=== PATIENT | female | born 1955 | race Caucasian/White ===

== ENCOUNTER 2019-11-14 09:16 | Outpatient (CLI) | payer OTHER, SELFPAY ==
--- NOTE | ~2019-11-14 | CT_ITS ---
EXAMINATION:CT lung screening DATE: 11/14/2019 09:36 INDICATION: Personal history of tobacco dependence. Current smoker with 30 pack year history. TECHNIQUE: Computed tomography (CT) of the chest was performed without intravenous contrast. Automate d exposure control and iterative reconstruction technique were employed. The dose-length product (DLP ) was 73.60 mGy-cm. COMPARISON: Chest CT 04/01/2018 FINDINGS: There is mild emphysema. There is mild scarring at the lung apices. Calcified bilateral dominique g nodules are consistent with old granulomatous disease. No pleural effusion. The heart size is estelle l. There are coronary artery calcifications. No pericardial effusion. There are bilateral posterior d iaphragmatic hernias containing fat. There is moderate cervical spondylosis. IMPRESSION: 1. Lung-RADS category 2: Benign appearance or behavior. Continue annual screening with noncontrast lo w-dose chest CT in 12 months. Reviewed, dictated and finalized at location A. ROL OPERATOR FLOW COAT IMPRESSION: 1. Lung-RADS category 2: Benign appearance or behavior. Continue annual screeni ng with noncontrast low-dose chest CT in 12 months.
== END 2019-11-14 09:17 | disposition home or self-care (01) ==
PROVIDERS: PCP Family Medicine; Visit Provider Internal Medicine Critical Care Medicine
DX: Z12.2 Encounter for screening for malignant neoplasm of respiratory organs (principal); Z87.891 Personal history of nicotine dependence
CPT/HCPCS: G0297

== ENCOUNTER 2020-05-03 11:53 | Outpatient (CLI) | payer OTHER, SELFPAY ==
[2020-05-03 12:24] LABS: Basophils Percent Auto 0.4 % (0.2-1.2); Eosinophils Absolute Auto 0.2 K/mm3 (0-0.3); Eosinophils Percent Auto 2.5 % (0-4.4); Hematocrit 40.8 % (37.0-47.0); Hemoglobin 13.7 g/dL (12.0-15.0); Immature Granulocyte Absolute 0.01 K/mm3 (0.00-0.031); Immature Granulocyte Percent A 0.1 % (0-0.5); Lymphocytes Absolute Auto 1.64 K/mm3 (0.9-3.2); Lymphocytes Percent Auto 23.7 % (18.3-44.2); Mean Corpuscular HGB Conc 33.6 g/dl (32-36); Mean Corpuscular Hemoglobin 30.9 pg (26-34); Mean Corpuscular Volume 91.9 fl (80-100); Mean Platelet Volume 9.1 fl (7.4-10.4); Monocytes Absolute Auto 0.7 K/mm3 (0.1-0.6); Monocytes Percent Auto 10.7 % (2.6-8.5); Neutrophils Absolute Auto 4.3 K/mm3 (1.3-6.7); Neutrophils Percent Auto 62.6 % (45.5-73.1); Platelet Count Result 330 k/mm3 (150-375); Red Blood Count 4.44 M/mm3 (4.2-5.4); Red Cell Distribution Width 13.3 % (11.5-14.5); White Blood Count 6.9 K/mm3 (4.5-10.0)
[2020-05-03 12:34] LABS: Hemoglobin A1C 5.5 % (<5.7)
[2020-05-03 12:44] LABS: Alanine Aminotransferase 19 U/L (4-35); Albumin Level 4.4 g/dL (3.5-5.1); Alkaline Phosphatase 50 U/L (38-126); Anion Gap 9.8 mmol/L (7-16); Aspartate Amino Transferase 28 U/L (14-36); Bilirubin,Total 0.4 mg/dL (0.2-1.3); Blood Urea Nitrogen 14 mg/dL (7-17); Calcium 9.1 mg/dL (8.4-10.2); Carbon Dioxide 27 mmol/L (22-30); Chloride 104 mmol/L (98-107); Cholesterol 254 mg/dL (0-200); Estimated Glomerular Filt Rate > 60; Glucose 106 mg/dL (65-105); HDL Direct 88 mg/dL; Potassium 3.8 mmol/L (3.4-5.0); Sodium 137 mmol/L (137-145); Triglycerides 102 mg/dL (<150)
[2020-05-03 12:55] LABS: LDL Cholesterol Direct 133 mg/dL
[2020-05-03 13:30] LABS: Free T4 Free Thyroxine 1.17 ng/mL (0.78-2.19)
== END 2020-05-03 11:54 | disposition home or self-care (01) ==
PROVIDERS: PCP Family Medicine; Visit Provider Family Medicine
DX: Z00.00 Encounter for general adult medical examination without abnormal findings (principal); Z79.899 Other long term (current) drug therapy
CPT/HCPCS: 36415; 80053; 80061; 83036; 84439; 84443; 85025

== ENCOUNTER 2020-06-06 10:20 | Outpatient (CLI) | payer OTHER, SELFPAY ==
--- NOTE | ~2020-06-06 | MM_ITS ---
EXAMINATION: MM screening deangelo BI w stephen HISTORY: Screening TECHNIQUE: Craniocaudal and mediolateral oblique 3-D tomosynthesis images were obtained and synthetic 2-D images were generated. CAD analysis was submitted and interpreted. COMPARISON: Comparison to multiple prior studies sequentially, with oldest reviewed study dated 12/2011. BREAST PARENCHYMAL COMPOSITION: There are scattered areas of fibroglandular density. FINDINGS: There is no evidence of suspicious mass, calcification, or architectural distortion to sugg est malignancy in either breast. There has been no suspicious interval change. IMPRESSION: 1. No mammographic evidence of malignancy. 2. Recommend routine screening mammography in one year. BI-RADS Category 1: Negative Reviewed, dictated and finalized at location A.
== END 2020-06-06 10:21 | disposition home or self-care (01) ==
PROVIDERS: PCP Family Medicine; Visit Provider Family Medicine
DX: Z12.31 Encounter for screening mammogram for malignant neoplasm of breast (principal)
CPT/HCPCS: 77063; 77067

== ENCOUNTER 2021-06-20 15:10 | Outpatient (CLI) | payer OTHER, SELFPAY ==
--- NOTE | ~2021-06-20 | MM_ITS ---
EXAMINATION: MM screening deangelo BI w stephen HISTORY: Screening TECHNIQUE: Craniocaudal and mediolateral oblique 3-D tomosynthesis images were obtained and synthetic 2-D images were generated. CAD analysis was submitted and interpreted. COMPARISON: Comparison to multiple prior studies sequentially, with oldest reviewed study dated 06/23. BREAST PARENCHYMAL COMPOSITION: There are scattered areas of fibroglandular density. FINDINGS: There is no evidence of suspicious mass, calcification, or architectural distortion to sugg est malignancy in either breast. There has been no suspicious interval change. IMPRESSION: 1. No mammographic evidence of malignancy. 2. Recommend routine screening mammography in one year. BI-RADS Category 1: Negative Reviewed, dictated and finalized at location A.
== END 2021-06-20 15:11 | disposition home or self-care (01) ==
LOC: ANHIMG 15:13
PROVIDERS: PCP Family Medicine; Visit Provider Family Medicine
DX: Z12.31 Encounter for screening mammogram for malignant neoplasm of breast (principal)
CPT/HCPCS: 77063; 77067

== ENCOUNTER → 2021-12-05 12:16 | Outpatient (CLI) | payer OTHER, SELFPAY ==
--- NOTE | ~2021-12-05 | CT_ITS ---
EXAMINATION: CT lung screening DATE: 12/05/2021 12:48 INDICATION: Personal history of tobacco dependence TECHNIQUE: Computed tomography (CT) of the chest was performed without intravenous contrast. The dose -length product was 69.85 mGy-cm. Automated exposure control and iterative reconstruction technique were employed. COMPARISON: CT dated 11/14/2019 FINDINGS: No significant pleural or pericardial effusion. Mild cardiomegaly. No thoracic lymphadenopa thy. Small hiatal hernia. There is a new 7 mm right upper lobe nodule, image 33. There is emphysema. There is a subsolid 7 mm nodule in the superior segment left lower lobe. There is apical pleural thic kening/scarring no pneumothorax. No pneumothorax. No focal airspace consolidation. No acute osseous a bnormality. IMPRESSION: 1. Lung-RADS category 3: Probably benign. Further evaluation is recommended with noncontrast low-dose chest CT in 6 months. Reviewed, dictated and finalized at location A. WORKER IMPRESSION: 1. Lung-RADS category 3: Probably benign. Further evaluation is recommended wit h noncontrast low-dose chest CT in 6 months.
== END ==
PROVIDERS: PCP Family Medicine; Visit Provider Physician Assistant
DX: Z87.891 Personal history of nicotine dependence (principal); R91.8 Other nonspecific abnormal finding of lung field
CPT/HCPCS: 71271

== ENCOUNTER → 2022-03-20 09:42 | Outpatient (CLI) | payer OTHER, SELFPAY ==
--- NOTE | ~2022-03-20 | CT_ITS ---
EXAMINATION: CT diagnostic chest wo con DATE: 03/20/2022 09:59 INDICATION: Other nonspecific abnormal finding of lung field TECHNIQUE: Computed tomography (CT) of the chest was performed without intravenous contrast. Addition al 3D reconstructions utilizing coronal maximum intensity projection (MIP) were performed. Automated exposure control and iterative reconstruction technique were employed. The dose-length product was 60 .05 mGy-cm. COMPARISON: 12/05/21 FINDINGS: Mild emphysema. No interval change in a 7 mm right upper lobe nodule with tiny central cavitation. Sl ight decrease in size of a previously 6 mm currently for-5 mm cavitary nodule in the superior segment of the left lower lobe. Multiple unchanged cysts scattered tiny bilateral calcified pulmonary nodule s consistent with old granulomatous disease. No new or enlarging pulmonary nodules, pneumonia,, pulmo nary edema or pleural effusion. Heart size is normal. Atherosclerotic coronary artery calcific locati on. No pericardial effusion. Small sliding-type hiatal hernia. Thoracic aorta is normal in caliber. N o pathologically enlarged thoracic lymphadenopathy. Mild thoracic spondylosis. IMPRESSION: 1. No change in a 7 mm centrally cavitary nodules in the right upper lobe and slight decrease in size of a now 4-5 mm centrally cavitary nodule in the superior segment of the left lower lobe. Would dinora mmend additional 6-12 month follow-up noncontrast chest CT. 2. Small sliding-type hiatal hernia. Reviewed, dictated and finalized at location A. IMPRESSION: 1. No change in a 7 mm centrally cavitary nodules in the right upper lobe and s light decrease in size of a now 4-5 mm centrally cavitary nodule in the superio r segment of the left lower lobe. Would recommend additional 6-12 month follow- up noncontrast chest CT. 2. Small sliding-type hiatal hernia.
== END ==
PROVIDERS: PCP Family Medicine; Visit Provider Physician Assistant
DX: R91.8 Other nonspecific abnormal finding of lung field (principal); Z72.0 Tobacco use; K44.9 Diaphragmatic hernia without obstruction or gangrene
CPT/HCPCS: 71250

== ENCOUNTER → 2022-09-25 09:58 | Outpatient (CLI) | payer OTHER, SELFPAY ==
--- NOTE | ~2022-09-25 | CT_ITS ---
CT Scan of the Chest without Contrast: Clinical Indication: Pulmonary nodule Technique: Contiguous sections were acquired throughout the chest without intravenous contrast. Dose reduction technique was used on this scan by utilizing automated exposure control and iterative recon struction technique. The dose-length product (DLP) was 65.00 mGy-cm. COMPARISON: 03/20/2022 and 11/14/2019 Findings: There is no evidence of any significant mediastinal, hilar or axillary lymphadenopathy. Coronary brandon ry calcifications are present. No aortic aneurysm. There is no evidence of pleural or pericardial effusion. There is a new 6.5 mm nodule at the right lung apex (series 4 image 24). There is a new 9 x 7 mm righ t upper lobe pulmonary nodule with possible tiny central cavitation (axial images 45-47). There is a new 10 x 6 mm left upper lobe pulmonary nodule (axial image 37). Stable 6 mm right upper lobe nodule tiny focus of central cavitation (axial image 32). Stable calcifi ed granuloma in the left upper lobe (axial image 50). Previously noted small cavitary nodule in the s uperior segment left upper lobe now has an appearance of an evolved calcified granuloma (axial image 52). Images through the upper abdomen reveal no abnormalities. Impression: 3 new pulmonary nodules measuring up to 9 mm and 6.5 mm in size in the right upper lobe, and 10 mm in the left upper lobe, as detailed above. One of the previously noted nodules in the superior segment left upper lobe has evolved into a calcified granuloma. This suggests an infectious/inflammatory etio logy to these nodules. Follow-up exam in 3 months recommended to reassess the new pulmonary nodules. Reviewed, dictated and finalized at location . ETIC SURGEON Impression: 3 new pulmonary nodules measuring up to 9 mm and 6.5 mm in size in the right up per lobe, and 10 mm in the left upper lobe, as detailed above. One of the previ ously noted nodules in the superior segment left upper lobe has evolved into a calcified granuloma. This suggests an infectious/inflammatory etiology to these nodules. Follow-up exam in 3 months recommended to reassess the new pulmonary nodules.
== END ==
PROVIDERS: PCP Physician Assistant; Visit Provider Nurse Practitioner Family
DX: R91.8 Other nonspecific abnormal finding of lung field (principal)
CPT/HCPCS: 71250

== ENCOUNTER → 2022-12-25 09:23 | Outpatient (CLI) | payer OTHER, SELFPAY ==
--- NOTE | ~2022-12-25 | CT_ITS ---
CT Scan of the Chest without Contrast: Clinical Indication: Pulmonary nodules Technique: Contiguous sections were acquired throughout the chest without intravenous contrast. Dose reduction technique was used on this scan by utilizing automated exposure control and iterative recon struction technique. The dose-length product (DLP) was 55.60 mGy-cm. COMPARISON: 09/25/2022 and and 03/20/2022 12/05/2021 and 25/06/2020 Findings: There is no evidence of any significant mediastinal, hilar or axillary lymphadenopathy. Coronary brandon ry calcifications are present. There is no evidence of pleural or pericardial effusion. 7 mm right upper lobe pulmonary nodule stable since 09/25/2022, new since 11/14/2019 (axial image 31). Additional 8 mm right upper lobe nodules minimally decreased (axial image 44). 5 mm right apical pulm onary nodule is decreased since 09/25/2022 (axial image 22). 8 mm left upper lobe pulmonary nodule is also unchanged since 09/25/2022, but new since 11/25/2025 axial image 33). Stable calcified left uppe r lobe granuloma since 11/14/2019. Images through the upper abdomen reveal no abnormalities. Impression: Bilateral upper lobe pulmonary nodules are stable to minimally decreased from most recent prior exam. Additional follow-up exam in 6 months advised. Reviewed, dictated and finalized at location M. Impression: Bilateral upper lobe pulmonary nodules are stable to minimally decreased from m ost recent prior exam. Additional follow-up exam in 6 months advised.
== END ==
PROVIDERS: PCP Nurse Practitioner Family; Visit Provider Nurse Practitioner Family
DX: R91.8 Other nonspecific abnormal finding of lung field (principal)
CPT/HCPCS: 71250

== ENCOUNTER → 2023-06-27 10:02 | Outpatient (CLI) | payer MEDICARE, SELFPAY ==
--- NOTE | ~2023-06-27 | CT_ITS ---
EXAMINATION: CT diagnostic chest wo con DATE: 06/27/2023 10:26 INDICATION: Pulmonary nodules TECHNIQUE: Computed tomography (CT) of the chest was performed without intravenous contrast. The dose -length product (DLP) was 64.87 mGy-cm. Automated exposure control and iterative reconstruction techn ique were employed. COMPARISON: 12/25/2022, 09/25/2022, 12/05/2021 FINDINGS: There is mild emphysema. There multiple new pulmonary nodules. There is a 13 mm nodule cent ral cavitation in the left upper lobe (image 29). There is a 10 mm nodule of the left upper lobe on i mage 37. An adjacent 6 mm nodule of the left upper lobe is stable. There is a stable 6 mm nodule of t he right upper lobe on image 33. A 4 mm right upper lobe nodule on image 36 is new. A 6 mm nodule of the right lower lobe is stable. No pleural effusion or pneumothorax. There is mild emphysema. No path ologically enlarged thoracic lymph nodes are identified. The heart size is normal. Calcified coronary artery atherosclerosis is noted. There is a small sliding hiatal hernia. IMPRESSION: 1. Multiple new pulmonary nodules as detailed above which may be infectious given their size and shor t interval since the comparison examination. However, follow-up low-dose CT in three months is recomm ended. Reviewed, dictated and finalized at location B. IMPRESSION: 1. Multiple new pulmonary nodules as detailed above which may be infectious giv en their size and short interval since the comparison examination. However, fol low-up low-dose CT in three months is recommended.
== END ==
PROVIDERS: PCP Nurse Practitioner Family; Visit Provider Nurse Practitioner Family
DX: R91.8 Other nonspecific abnormal finding of lung field (principal)
CPT/HCPCS: 71250

== ENCOUNTER 2023-07-04 15:51 | Outpatient (CLI) | payer MEDICARE, SELFPAY ==
[2023-07-04 16:47] LABS: Basophils Percent Auto 0.5 % (0.2-1.2); Eosinophils Absolute Auto 0.2 K/mm3 (0-0.3); Eosinophils Percent Auto 2.8 % (0-4.4); Hematocrit 40.1 % (37.0-47.0); Hemoglobin 12.9 g/dL (12.0-15.0); Immature Granulocyte Absolute 0.02 K/mm3 (0.00-0.031); Immature Granulocyte Percent A 0.2 % (0-0.5); Lymphocytes Absolute Auto 2.07 K/mm3 (0.9-3.2); Lymphocytes Percent Auto 25.1 % (18.3-44.2); Mean Corpuscular HGB Conc 32.2 g/dl (32-36); Mean Corpuscular Hemoglobin 30.4 pg (26-34); Mean Corpuscular Volume 94.6 fl (80-100); Mean Platelet Volume 9.4 fl (7.4-10.4); Monocytes Absolute Auto 0.7 K/mm3 (0.1-0.6); Neutrophils Absolute Auto 5.2 K/mm3 (1.3-6.7); Neutrophils Percent Auto 62.4 % (45.5-73.1); Platelet Count Result 409 k/mm3 (150-375); Red Blood Count 4.24 M/mm3 (4.2-5.4); Red Cell Distribution Width 13.9 % (11.5-14.5); White Blood Count 8.3 K/mm3 (4.5-10.0)
== END 2023-07-04 15:52 | disposition home or self-care (01) ==
PROVIDERS: PCP Nurse Practitioner Family; Visit Provider Nurse Practitioner Family
DX: R05.8 Other specified cough (principal); R91.8 Other nonspecific abnormal finding of lung field
CPT/HCPCS: 36415; 85025; 86606

== ENCOUNTER 2023-07-07 12:21 | Outpatient (CLI) | payer MEDICARE, SELFPAY | END 2023-07-07 12:22 | disposition home or self-care (01) | PROVIDERS: PCP Nurse Practitioner Family; Visit Provider Nurse Practitioner Family | DX: R05.8 Other specified cough (principal) | CPT/HCPCS: 87070; 87205 ==

== ENCOUNTER 2023-07-17 10:23 | Outpatient (CLI) | payer MEDICARE, SELFPAY | END 2023-07-17 10:24 | disposition home or self-care (01) | PROVIDERS: PCP Nurse Practitioner Family; Visit Provider Nurse Practitioner Family | DX: R05.8 Other specified cough (principal) | CPT/HCPCS: 87015; 87070; 87102; 87106; 87107; 87116; 87205; 87206 ==

== ENCOUNTER 2023-07-18 09:08 | Outpatient (CLI) | payer MEDICARE, SELFPAY | END 2023-07-18 09:09 | disposition home or self-care (01) | PROVIDERS: PCP Nurse Practitioner Family; Visit Provider Nurse Practitioner Family | DX: R05.8 Other specified cough (principal) | CPT/HCPCS: 87015; 87070; 87102; 87106; 87107; 87116; 87118; 87205; 87206 ==

== ENCOUNTER 2023-09-03 10:23 | Outpatient (CLI) | payer MEDICARE, SELFPAY ==
--- NOTE | ~2023-09-03 | CT_ITS ---
CT Scan of the Chest without Contrast: Clinical Indication: Nonspecific abnormal finding of lung field, pulmonary nodule Technique: Contiguous sections were acquired throughout the chest without intravenous contrast. Dose reduction technique was used on this scan by utilizing automated exposure control and iterative recon struction technique. The dose-length product (DLP) was 81.46 mGy-cm. COMPARISON: 06/25/2023 Findings: There is no evidence of any significant mediastinal, hilar or axillary lymphadenopathy. The mediastin al soft tissues appear normal. There is no evidence of pleural or pericardial effusion. 1.7 cm left apical pulmonary nodule with possible tiny central cavitation is present, probably minima lly increased in size from prior exam. Additional 1.2 cm left upper lobe pulmonary nodules essentiall y unchanged (axial image 37). Stable additional 4 mm left upper lobe pulmonary nodule (axial image 51 ). Subcentimeter right upper lobe pulmonary nodules are unchanged. Images through the upper abdomen reveal no abnormalities. Impression: Multiple pulmonary nodules, as detailed above, stable in distribution from prior exam. The largest 1. 7 cm lesion at the left apex may be minimally increased from prior exam. Diagnostic considerations ag ain include infectious/inflammatory versus neoplastic lesions. Given persistence of lesions, consider tissue sampling as indicated. Reviewed, dictated and finalized at location M. FISHING VESSEL Impression: Multiple pulmonary nodules, as detailed above, stable in distribution from prio r exam. The largest 1.7 cm lesion at the left apex may be minimally increased f rom prior exam. Diagnostic considerations again include infectious/inflammatory versus neoplastic lesions. Given persistence of lesions, consider tissue sampl ing as indicated.
== END 2023-09-03 10:24 | disposition home or self-care (01) ==
PROVIDERS: PCP Nurse Practitioner Family; Visit Provider Nurse Practitioner Family
DX: R91.8 Other nonspecific abnormal finding of lung field (principal)
CPT/HCPCS: 71250

== ENCOUNTER 2023-09-12 18:33 | Inpatient (IN) | payer MEDICARE, SELFPAY ==
[2023-09-09 09:45] VITALS: BMI 24.9
--- NOTE | 2023-09-09 09:46 | PC.NURSE ---
Pre Radiology instructions Report to the outpatient srinath solomon on date _09/12/23____ at time __0900 for procedure Time: __1100__ YOU MAY BE MONITORED AT HOSPITAL FOR UP TO 4 HOURS AFTER YOUR PROCEDURE. A visitor will be allowed to accompany the patient into the hospital. You and your visitor will be asked to self-screen and do not enter if you have any COVID symptoms. A mask is OPTIONAL within the hospital. Patients are to have no food or drink 8 hours prior to procedure time (0300 AM) Driving will be restricted after the procedure, you must have a person to drive you home. Labs will be drawn in preop area and once reviewed, you will be taken to radiology area for procedure. When the procedure is completed, you will be taken to outpatient where you will be monitored for several hours. You may have one visitor in this area. Other than holding anti-coagulants, patient may take other medication(s) as scheduled. Prior to your appointment date patients are instructed to hold anti-coagulants after discussing with ordering provider to stop. If unable to discontinue anti-coagulants please notify radiologist. ? No aspirin or warfarin (Coumadin) for 7 days prior to the procedure. ? No clopidogrel (Plavix), ticagrelor (Brilinta), prasugrel (Effient) or dabigatran (Pradaxa) for 5 days prior to the procedure. ? No rivaroxaban (Xarelto), apixaban (Eliquis), dipyridamole (Aggrenox or Persantine) or cilostazol (Pletal) for 2 days prior to the procedure. Medications to discontinue per physician: ___N/A Date to take last dose: Please leave all valuables, including medications, at home the day of procedure. The hospital will not accept responsibility for valuables. Wear comfortable, loose fitting clothing.? Follow any additional instructions given to you from ordering provider. Telephone instructions given to ____PT and asked if any additional questions and then verbalized understanding. Patient advised to call scheduling provider office or registration scheduling [phone] if any additional questions.
[2023-09-12] VITALS (20 sets, daily range): BP systolic 124–156; BP diastolic 59–74; PULSE 60–89; RESP 14–20; TEMP 36.4–37.5; O2SAT 93–100; BMI 24.0
--- NOTE | ~2023-09-12 | CT_ITS ---
EXAMINATION: CT chest tube placement w img DATE: 09/12/2023 18:37 INDICATION: Iatrogenic left pneumothorax post percutaneous lung biopsy TECHNIQUE: The procedure including the risks and benefits was discussed with the patient. Risks discu ssed included bleeding and infection. The patient understood the risks and benefits and agreed to pro ceed. The skin at the left infraclavicular region at the site of the prior biopsy was prepped and daria ped in usual sterile fashion. Anesthetic was administered with 1% lidocaine subcutaneously. Utilizin g CT guidance and 18-gauge trochar needle was advanced along the tract of the prior lung biopsy and t he apical portion of the left pneumothorax. The inner stylette was removed and a wire was advanced th rough the needle with position confirmed by CT. Utilizing Seldinger technique the needle was removed over the wire and the tract serially dilated to 8 Fr. An 8.5 Fr catheter was inserted over the wire i nto the apical component of the pneumothorax. The pigtail tip was formed and locked with position con firmed by CT. The catheter was sutured to the skin and antibiotic ointment, Vaseline impregnated gauz e and a sterile dressing were applied. The pneumothorax was manually decompressed with final topogram images demonstrating resolution of the left pneumothorax. There were no immediate complications and the patient was transferred to the floor. The dose-length product was 107.61 mGy-cm. FINDINGS: CT images demonstrate the catheter within the apical component of the left pneumothorax whi ch had resolved post decompression on the final topographic images. There is a residual small amount of pulmonary hemorrhage surrounding the biopsied left apical nodule. The demonstrated significantly i mproved since the time of the biopsy. IMPRESSION: 1. Successful CT-guided left apical chest tube placement with resolution of the left pneumothorax pos t manual decompression. 2. The patient was admitted to the floor to the hospitalist service of Dr. Lily Desir. Reviewed, dictated and finalized at location A. ECTION TEAM LEAD IMPRESSION: 1. Successful CT-guided left apical chest tube placement with resolution of the left pneumothorax post manual decompression. 2. The patient was admitted to the floor to the hospitalist service of Dr. Jaqueline Desir.
--- NOTE | ~2023-09-12 | XR_ITS ---
XR chest 1V portable 09/12/2023 15:04 Indication: Post image guided biopsy. Procedure: AP upright view of the chest Comparison: 09/12/2023 Findings: Increased size of moderate left pneumothorax measuring 6.4 cm from the visceral to the bentley etal pleura at the apex. There is underlying compressive atelectasis of the left upper lung. There ma y be superimposed postbiopsy hemorrhage. Right lung clear. Borderline heart size. No significant effu roberto. Impression: 1: Enlarging moderate left pneumothorax. Reviewed, dictated and finalized at location B. UNLOADER HELPER Impression: 1: Enlarging moderate left pneumothorax.
--- NOTE | ~2023-09-12 | XR_ITS ---
EXAMINATION: XR chest 1V portable INDICATION: Pneumothorax TECHNIQUE: Portable AP chest at 0758 hours COMPARISON: 09/13/2023 FINDINGS: The left-sided chest tube is unchanged in position. No pneumothorax is identified. Minimal airspace opacities throughout the left lung likely reflect atelectasis. There is no pleural effusion. The cardiomediastinal silhouette is normal. IMPRESSION: 1. No pneumothorax identified. Reviewed, dictated and finalized at location F. ASS POWER PLANT MANAGER
--- NOTE | ~2023-09-12 | CT_ITS ---
EXAMINATION: CT biopsy lung w/imaging DATE: 09/12/2023 12:20 INDICATION: Solitary pulmonary nodule TECHNIQUE: The procedure including the risks and benefits was discussed with the patient. Risks discu ssed included infection, approximately 1/20 risk of symptomatic hemorrhage beyond mild hemoptysis, ap proximately 1/3 risk of pneumothorax, and approximately 1/10 risk of pneumothorax severe enough to wa rrant chest tube placement. The patient understood the risks and agreed to proceed. The patient was p laced supine. The skin overlying the infraclavicular anterior left upper chest was prepped and drape d in sterile fashion. Anesthetic was administered with 1% lidocaine subcutaneously. A 19 gauge oute r needle was advanced under CT guidance to the lesion of interest. A 20 gauge core biopsy needle was then used to obtain 3 core biopsy specimens. The needle was removed and the entry site was cleaned an d dressed. There is a moderate amount of pulmonary hemorrhage surrounding the biopsied nodule as well as development of a small left apical pneumothorax. This increased over the initial hour of observat ion with some improvement of the pulmonary hemorrhage. There is no significant change in the pneumoth orax on the 3 hour postbiopsy imaging. The patient at this time was saturating 94% on room air. I dis cussed with the patient the options of either discharged to home with return to the emergency departm ent should symptoms worsen or to proceed with chest tube placement. The patient elected to proceed wi chest tube placement and admission. The dose-length product was 282.14 mGy-cm. FINDINGS: CT images demonstrate the outer needle tip adjacent to a 1.8 cm nodule at the left apex. Th ere is a moderate amount of pulmonary hemorrhage surrounding the nodule in the left upper lobe a smal l apical pneumothorax on the final imaging. IMPRESSION: 1. Successful CT-guided biopsy of a 1.8 cm left apical nodule. 2. Moderate amount of post procedure pulmonary hemorrhage which was clearing on follow-up imaging and small to moderate-sized iatrogenic pneumothorax. The patient elected to proceed with chest tube plac ement which was placed without complication with successful decompression of the pneumothorax and exp ansion of the lung. See separate procedure note for further detail. Reviewed, dictated and finalized at location A. LLURGICAL SPECIALIST IMPRESSION: 1. Successful CT-guided biopsy of a 1.8 cm left apical nodule. 2. Moderate amount of post procedure pulmonary hemorrhage which was clearing on follow-up imaging and small to moderate-sized iatrogenic pneumothorax. The pat ient elected to proceed with chest tube placement which was placed without comp lication with successful decompression of the pneumothorax and expansion of the lung. See separate procedure note for further detail.
--- NOTE | ~2023-09-12 | XR_ITS ---
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 RESULT: Lines, tubes, and devices: Smallbore left apical chest tube, in good position. Lungs and pleura: Streaky perihilar opacities and mild diffuse reticular opacities. Near-complete re solution of the left pneumothorax. Hazy segmental left upper lung opacity may represent atelectasis o r reexpansion edema. Cardiomediastinal silhouette: Stable. Other: No acute osseous or upper abdominal finding. IMPRESSION: Near complete resolution of the left pneumothorax status post chest tube insertion. Vascular congesti on/mild edema. Reviewed, dictated and finalized at location K. EN TRACTOR MECHANIC IMPRESSION: Near complete resolution of the left pneumothorax status post chest tube insert ion. Vascular congestion/mild edema.
--- NOTE | ~2023-09-12 | XR_ITS ---
EXAMINATION: XR chest 2V Exam Date/Time: 09/14/2023 13:50 DOUBLE SPINDLE SHAPER OPERATOR HISTORY: s/p chest tube removal Comparison: 09/14/2023 at 7:58 AM. RESULT: Lines, tubes, and devices: Interval removal of the small bore left apical chest tube. Lungs and pleura: Emphysematous and senescent change. Improving aeration in the left upper lung. No pneumothorax. Cardiomediastinal silhouette: Stable. Other: No acute osseous or upper abdominal finding. IMPRESSION: No acute cardiopulmonary process. Reviewed, dictated and finalized at location K. LE SPINDLE SHAPER OPERATOR
--- NOTE | ~2023-09-12 | XR_ITS ---
EXAMINATION: XR chest 1V DATE: 09/12/2023 12:02 INDICATION: Status post percutaneous left lung biopsy TECHNIQUE: frontal view of the chest was obtained. COMPARISON: Chest radiograph dated 11/25/18 FINDINGS: There is a small left pneumothorax at the upper lung zones. Airspace opacity left upper lobe consiste nt with postbiopsy pulmonary hemorrhage which surrounds the biopsied right upper lobe nodule which is concerning for primary bronchogenic carcinoma. Right lung remains clear. No pulmonary edema, pleural effusion or right-sided pneumothorax. The cardiomediastinal silhouette is normal. IMPRESSION: 1. Pulmonary hemorrhage in the left upper lobe and small left pneumothorax. Reviewed, dictated and finalized at location A. CTOR OF CATEGORY MANAGEMENT
--- NOTE | ~2023-09-12 | XR_ITS ---
EXAMINATION: XR chest 1V portable DATE: 09/12/2023 13:05 INDICATION: Status post left percutaneous lung biopsy. TECHNIQUE: frontal view of the chest was obtained. COMPARISON: Chest radiograph dated 09/12/2023 FINDINGS: Increasing size of a small, approaching moderate sized left pneumothorax. Slight improvement in airsp lobito opacities in the left upper lobe consistent with postbiopsy hemorrhage. This obscures the biopsie d left upper lobe nodule which is concerning for primary bronchogenic carcinoma. Right lung remains c lear. No pulmonary edema, pleural effusion or right-sided pneumothorax. Heart size is normal. Visuali zed bones and soft tissues are unremarkable. IMPRESSION: 1. Interval enlargement in a now small to moderate sized left pneumothorax. 2. Improvement in pulmonary hemorrhage in the right upper lobe surrounding the biopsied nodule which is concerning for primary bronchogenic carcinoma. Reviewed, dictated and finalized at location A. DEMONSTRATION AGENT
[2023-09-12 10:22] LABS: Mean Platelet Volume 8.7 fl (7.4-10.4); Platelet Count Result 390 k/mm3 (150-375)
[2023-09-12 10:37] LABS: INR 0.9; Prothrombin Time 12.1 Seconds (11.1-14.7)
--- NOTE | 2023-09-12 13:31 | SUR.PHASEII ---
1315 - Dr Del Rosario called after cxr done. States pneumothorax is a little larger than one seen on the cxr done immediately after procedure. Orders continue to observe pt, continue on 1L/O2 per nasal cannula. will make determination after the next xray done around 1500. Pt remains lying on stretcher, sleeping at intervals. Less coughing than previously.
--- NOTE | 2023-09-12 17:03 | SUR.PHASEII ---
DR. HUNTER HERE TO DISCUSS OPTIONS WITH PATIENT. A CHEST TUBE WILL BE PLACED IN CT PER DR. HUNTER. PATIENT WILL BE ADMITTED. PATIENT UNDERSTANDS PLAN.
--- NOTE | 2023-09-12 17:04 | SUR.PHASEII ---
1648 DR. HUNTER INSTRUCTED TO WEAN OFF TO ROOM AIR.
--- NOTE | 2023-09-12 17:16 | SUR.PHASEII ---
1785 RESIDENCE SUPERVISOR NOTIFIED RE: POSSIBLE ADMISSION.
--- NOTE | 2023-09-12 17:16 | SUR.PHASEII ---
1700 FERRYBOAT TICKET TAKER NOTIFIED OF ADMISSION.
[2023-09-12] MEDS: MORPHINE SULFATE (*CRX) 2 MG/ML INJ 1 MG IV PUSH (17:30)
--- NOTE | 2023-09-12 17:52 | SUR.PHASEII ---
REPORT GIVEN TO AJ BRENNER RN. MESSAGE RELAYED TO HER FROM ADMITTING TO CALL ADMITTING WHEN PATIENT ARRIVES. PATIENT WILL BE A DIRECT ADMIT.
--- NOTE | 2023-09-12 18:50 | ADMGEN ---
This patient, Kirstin Davis, was admitted to 3 [facility] Surg Room 320-01. Patient/family oriented to hospital policies and general routines including ID bracelet, bed and alarms, visiting hours, pain management, procedures, bathroom and other care routines, personal items, smoking policy, room service/diet, and visiting hours. Information on how to activate the Rapid Response Team has been discussed. Patient/Family are encouraged to report perceived risks to care and to ask questions if they do not understand what they are told or what they should do. Received pt from CT s/p chest tube placement; pt hooked to chest tube system with suction. Clamps, vaseline gauze, 4x4s, tape all at pt bedside
[2023-09-12] MEDS: LACTATED RINGERS 1,000 ML 100 ML IV CONT (19:56)
[2023-09-12] MEDS: ACETAMINOPHEN 325 MG TABLET 650 MG PO (19:56)
--- NOTE | 2023-09-12 20:21 | PM.IMHP ---
H&P: HPI History of Present Illness Date/Time: 09/12/23 20:21 Chief Complaint: Acute pneumothorax Narrative: This is a 67-year-old female with past medical history significant for COPD/emphysema, tobacco dependence, lung nodule, recurrent pneumonia. Patient was admitted after developing postprocedural acute pneumothorax of the left side after lung biopsy. At the time of my visit patient was comfortable denied any pain. XR chest 1V portable 09/12/2023 15:04 Indication: Post image guided biopsy. Procedure: AP upright view of the chest Comparison: 09/12/2023 Findings: Increased size of moderate left pneumothorax measuring 6.4 cm from the visceral to the parietal pleura at the apex. There is underlying compressive atelectasis of the left upper lung. There may be superimposed postbiopsy hemorrhage. Right lung clear. Borderline heart size. No significant effusion. Impression: 1: Enlarging moderate left pneumothorax. EXAMINATION: CT chest tube placement w img DATE: 09/12/2023 18:37 INDICATION: Iatrogenic left pneumothorax post percutaneous lung biopsy TECHNIQUE: The procedure including the risks and benefits was discussed with the patient. Risks discussed included bleeding and infection. The patient understood the risks and benefits and agreed to proceed. The skin at the left infraclavicular region at the site of the prior biopsy was prepped and draped in usual sterile fashion.? Anesthetic was administered with 1% lidocaine subcutaneously. Utilizing CT guidance and 18-gauge trochar needle was advanced along the tract of the prior lung biopsy and the apical portion of the left pneumothorax. The inner stylette was removed and a wire was advanced through the needle with position confirmed by CT. Utilizing Seldinger technique the needle was removed over the wire and the tract serially dilated to 8 Fr. An 8.5 Fr catheter was inserted over the wire into the apical component of the pneumothorax. The pigtail tip was formed and locked with position confirmed by CT. The catheter was sutured to the skin and antibiotic ointment, Vaseline impregnated gauze and a sterile dressing were applied. The pneumothorax was manually decompressed with final topogram images demonstrating resolution of the left pneumothorax. There were no immediate complications and the patient was transferred to the floor. The dose-length product was 107.61 mGy-cm. FINDINGS: CT images demonstrate the catheter within the apical component of the left pneumothorax which had resolved post decompression on the final topographic images. There is a residual small amount of pulmonary hemorrhage surrounding the biopsied left apical nodule. The demonstrated significantly improved since the time of the biopsy. IMPRESSION: 1. Successful CT-guided left apical chest tube placement with resolution of the left pneumothorax post manual decompression. 2. The patient was admitted to the floor to the hospitalist service of Dr. Lily Desir. Review of Systems Review of Systems: Pneumothorax after procedure, lung biopsy. Constitutional: Constitutional: Denies chills, Denies fever(s) and Denies night sweats Eyes: Eyes: Denies change in vision ENT: Denies dysphagia and Denies odynophagia Cardiovascular: Cardiovascular: Denies chest pain and Denies leg edema Respiratory: Respiratory: Denies cough and Denies dyspnea Gastrointestinal: Gastrointestinal: Denies abdominal pain, Denies nausea and Denies vomiting Genitourinary: Genitourinary: Denies dysuria Musculoskeletal: Musculoskeletal: Denies myalgias Integumentary/Breasts: Skin/Breast: Denies rash Neurologic: Denies focal weakness and Denies Sensory deficit (Neuro) Psychiatric: Psychiatric: Reports no additional psychiatric complaints and Reports as per HPI Endocrine: Endocrine: Denies cold intolerance, Denies flushing, Denies heat intolerance, Denies polyphagia, Denies polydipsia and Denies palpitations Hematologic/Lym
[2023-09-12] MEDS: HYDROcodone/acetaminophen (*CRX) 5-325 MG TABLET 1 TAB PO (22:04)
[2023-09-13] VITALS (11 sets, daily range): BP systolic 124–144; BP diastolic 54–74; PULSE 54–86; RESP 14–16; TEMP 36.3–36.9; O2SAT 91–96
[2023-09-13] MEDS: ACETAMINOPHEN 325 MG TABLET 650 MG PO (06:35)
[2023-09-13] MEDS: MONTELUKAST SODIUM 10 MG TABLET PO (08:29)
[2023-09-13] MEDS: FLUTICASONE PROPIONATE 0.05% NA SPR 16 GM BTL (*BKC) 1 SPRAY NASAL ×2 (08:29→20:52)
[2023-09-13] MEDS: FLUTICASONE/UMECLIDIN/VILANTER 100-62.5-25 MCG ELLIPTA 1 PUFF INHALATION (08:44)
[2023-09-13] MEDS: ALBUTEROL SULFATE (*SP) AEROSOL 1 PUFF INHALATION (08:44)
--- NOTE | 2023-09-13 11:52 | PM.IMPN ---
Progress Note: A&P Assessment and Plan (1) Pneumothorax: Code(s): J93.9 - Pneumothorax, unspecified Status: Acute Assessment and Plan: Patient admitted here due to a pneumothorax that happened while she was getting a lung biopsy. There was postprocedural pulmonary hemorrhage and a moderate-size iatrogenic pneumothorax. Chest tube placed with successful decompression. General surgery consulted (2) Pulmonary nodules: Code(s): R91.8 - Other nonspecific abnormal finding of lung field Status: Acute Assessment and Plan: Status post biopsy. Patient sees Daniel Edward in pulmonology. (3) Tobacco abuse: Code(s): Z72.0 - Tobacco use Status: Resolved Assessment and Plan: Encourage cessation. Nicotine patch provided. (4) CVID (common variable immunodeficiency): Code(s): D83.9 - Common variable immunodeficiency, unspecified Status: Chronic Assessment and Plan: Unchanged (5) Chronic obstructive pulmonary disease: Qualifiers: COPD type: unspecified COPD Qualified Code(s): J44.9 - Chronic obstructive pulmonary disease, unspecified Code(s): J44.9 - Chronic obstructive pulmonary disease, unspecified Status: Acute Assessment and Plan: Not actively wheezing. Continue home medications. Subjective Date/time seen: 09/13/23 11:52 Interval history: Patient doing well. She denies shortness of breath. She does have some discomfort with deep inhales at the site of chest tube. She does not have any cardiac type chest pain but does have discomfort at chest tube insertion site. general surgery consulted to help manage chest tube. Exam Narrative: GENERAL: Comfortable, no acute distress HENMT: moist mucous membranes EYES: EOM intact b/l RESPIRATORY: clear to auscultation CARDIO: RRR CHEST: chest tube in place GI: soft, nontender, bowel sounds present SKIN: no rashes EXTREMITIES: no edema, redness or tenderness Objective Data Vital Signs Vital Signs: Vital Signs - 24 hr 09/12/23 12:05 09/12/23 12:15 09/12/23 12:30 Temperature Pulse Rate 66 67 71 Respiratory Rate 18 18 18 Blood Pressure 144/62 H 142/66 H 142/65 H Pulse Oximetry 96 95 97 Oxygen Delivery Nasal Cannula Nasal Cannula Nasal Cannula Oxygen Flow Rate 2 1 1 09/12/23 12:55 09/12/23 13:09 09/12/23 13:20 Temperature Pulse Rate 75 89 72 Respiratory Rate 18 18 16 Blood Pressure 140/67 146/65 H 134/67 Pulse Oximetry 97 95 94 Oxygen Delivery Nasal Cannula Nasal Cannula Nasal Cannula Oxygen Flow Rate 1 1 1 09/12/23 13:50 09/12/23 14:10 09/12/23 14:30 Temperature Pulse Rate 69 63 68 Respiratory Rate 16 16 16 Blood Pressure 133/61 132/61 131/68 Pulse Oximetry 93 96 98 Oxygen Delivery Nasal Cannula Nasal Cannula Nasal Cannula Oxygen Flow Rate 1 1 1 09/12/23 14:40 09/12/23 15:05 09/12/23 15:30 Temperature Pulse Rate 85 69 72 Respiratory Rate 20 20 20 Blood Pressure 138/71 131/74 134/68 Pulse Oximetry 94 94 94 Oxygen Delivery Nasal Cannula Nasal Cannula Nasal Cannula Oxygen Flow Rate 1 1 1 09/12/23 16:05 09/12/23 16:30 09/12/23 17:00 Temperature Pulse Rate 74 68 68 Respiratory Rate 20 20 20 Blood Pressure 129/59 L 131/59 L 128/60 Pulse Oximetry 94 94 94 Oxygen Delivery Nasal Cannula Room Air Room Air Oxygen Flow Rate 1 09/12/23 17:20 09/12/23 18:00 09/12/23 20:00 Temperature 97.6 F Pulse Rate 72 76 Respiratory Rate 20 14 Blood Pressure 124/68 156/69 H Pulse Oximetry 94 100 Oxygen Delivery Room Air Room Air Oxygen Flow Rate 09/12/23 20:11 09/12/23 20:00 09/13/23 00:00 Temperature 99.5 F Pulse Rate 64 65 59 L Respiratory Rate 18 Blood Pressure 141/69 H Pulse Oximetry 98 Oxygen Delivery Oxygen Flow Rate 09/13/23 01:01 09/13/23 04:00 09/13/23 04:19 Temperature 97.4 F L 97.3 F L Pulse Rate 58 L 58 L 54 L Respiratory Rate 16 16 Blood Pressure 124
[2023-09-13] MEDS: AZELASTINE HCL NASAL 0.1% 137 MCG/SPR 30 ML BTL 1 SPRAY NASAL (20:52)
[2023-09-14] VITALS (8 sets, daily range): BP systolic 114; BP diastolic 59–69; PULSE 61–94; RESP 13–16; TEMP 36.7–37.1; O2SAT 92–94
[2023-09-14 07:35] LABS: Hematocrit 39.1 % (37.0-47.0); Hemoglobin 12.8 g/dL (12.0-15.0); Mean Corpuscular HGB Conc 32.7 g/dl (32-36); Mean Corpuscular Hemoglobin 30.2 pg (26-34); Mean Corpuscular Volume 92.2 fl (80-100); Mean Platelet Volume 9.2 fl (7.4-10.4); Platelet Count Result 389 k/mm3 (150-375); Red Blood Count 4.24 M/mm3 (4.2-5.4); Red Cell Distribution Width 13.7 % (11.5-14.5); White Blood Count 9.7 K/mm3 (4.5-10.0)
[2023-09-14 07:43] LABS: Anion Gap 4 mmol/L (8-16); Blood Urea Nitrogen 13 mg/dL (7-17); Carbon Dioxide 27 mmol/L (22-30); Chloride 105 mmol/L (98-107); Estimated CRCL calculation 53 ml/min; Estimated Glomerular Filt Rate > 60; Glucose 98 mg/dL (65-110); Potassium 3.8 mmol/L (3.4-5.0); Sodium 136 mmol/L (137-145)
[2023-09-14] MEDS: ALENDRONATE SODIUM 70 MG TABLET PO (08:07)
[2023-09-14] MEDS: MONTELUKAST SODIUM 10 MG TABLET PO (08:08)
[2023-09-14] MEDS: FLUTICASONE PROPIONATE 0.05% NA SPR 16 GM BTL (*BKC) 1 SPRAY NASAL (08:09)
[2023-09-14] MEDS: AZELASTINE HCL NASAL 0.1% 137 MCG/SPR 30 ML BTL 1 SPRAY NASAL (08:10)
[2023-09-14] MEDS: FLUTICASONE/UMECLIDIN/VILANTER 100-62.5-25 MCG ELLIPTA 1 PUFF INHALATION (10:10)
--- NOTE | 2023-09-14 12:08 | PM.CNGS ---
Assessment and Plan Assessment and plan (1) Pneumothorax: Qualifiers: Pneumothorax type: postprocedural Qualified Code(s): J95.811 - Postprocedural pneumothorax Code(s): J93.9 - Pneumothorax, unspecified Status: Acute Assessment and Plan: I have reviewed the imaging and discussed the current treatment with the patient. The pneumothorax appears to be adequately treated with the chest tube. There does not appear to be any sign of an air leak when the chest tube was taken off of suction. Will remove the chest tube at the bedside today. A follow-up chest x-ray will be obtained about 3 hours after chest tube removal. Okay to discharge home this afternoon if no recurrent pneumothorax is identified. She may follow-up with her sales development manager for further care after discharge. (2) Pulmonary nodules: Code(s): R91.8 - Other nonspecific abnormal finding of lung field Status: Acute (3) Chronic obstructive pulmonary disease: Qualifiers: COPD type: unspecified COPD Qualified Code(s): J44.9 - Chronic obstructive pulmonary disease, unspecified Code(s): J44.9 - Chronic obstructive pulmonary disease, unspecified Status: Acute (4) Tobacco abuse: Code(s): Z72.0 - Tobacco use Status: Resolved History of Present Illness Consult details Consult date: 09/14/23 Reason for consult: chest tube Requesting physician: Akanksha Valdivia PA-C Narrative: This is a 67-year-old woman who I am asked to see for management of a chest tube. She had undergone CT-guided left lung biopsy 09/12/2023 and subsequently developed a left pneumothorax that was then treated with CT-guided chest tube placement. The pneumothorax appeared mostly resolved on the follow-up chest x-ray. She was then admitted for further treatment. She denies any shortness of breath. She is coughing up a small amount of blood. She is mostly having pain at the chest tube insertion site. Review of Systems Review of Systems: All systems reviewed & are unremarkable except as noted in HPI and below Eyes: Eyes: Denies change in vision ENT: Denies hearing loss, Denies neck pain and Denies sore throat Cardiovascular: Cardiovascular: Denies chest pain and Denies dyspnea Respiratory: Respiratory: Reports as per HPI and Reports hemoptysis Genitourinary: Genitourinary: Denies hematuria and Denies dysuria Musculoskeletal: Musculoskeletal: Denies arthralgias, Denies joint swelling and Denies neck pain Allergic/Immunologic: Allergic/Immunologic: Denies wheezing [facility] Past Medical History Medical History Asthma CVID (common variable immunodeficiency) Pneumonia due to aerobic bacteria Pulmonary nodules Recurrent pneumonia Seasonal allergic rhinitis Surgical History Surgical History H/O total hysterectomy Family History Family History Father Acute myocardial infarction, Onset Age: 45 Family history of cardiovascular disease, Onset Age: 45 Mother Family history of chronic obstructive pulmonary disease, Onset Age: 79 Family history of dementia, Onset Age: 79 Family history of mental disorder Sibling Patient's brother is in good health Social History Social History Smoking packs per day: 1 Smoking cigarettes per day: 20.0 Years smoked: 40 Smoking pack-years: 40.00 Smoking status: Current every day smoker Alcohol intake: current Drinks per week: 1 Substance use: never Lack of Transportation: No Lack of Food: Never True Current Housing: I Have Housing Concerned About Future Housing: No Difficulty Paying Gas/Electric Bills: No Difficulty Paying for Meds: No Currently Unemployed: No Education: Decline to Answer Difficulty w/ Childcare or Fami
--- NOTE | 2023-09-14 14:40 | PM.DS ---
DS: Admitting Diagnosis Discharge Date 09/14/23 Admitting Diagnosis pneumothorax DS: Discharge Diagnosis Discharge Diagnosis (1) Pneumothorax: Qualifiers: Pneumothorax type: postprocedural Qualified Code(s): J95.811 - Postprocedural pneumothorax Code(s): J93.9 - Pneumothorax, unspecified Status: Acute (2) Pulmonary nodules: Code(s): R91.8 - Other nonspecific abnormal finding of lung field Status: Acute (3) Tobacco abuse: Code(s): Z72.0 - Tobacco use Status: Resolved (4) CVID (common variable immunodeficiency): Code(s): D83.9 - Common variable immunodeficiency, unspecified Status: Chronic (5) Chronic obstructive pulmonary disease: Qualifiers: COPD type: unspecified COPD Qualified Code(s): J44.9 - Chronic obstructive pulmonary disease, unspecified Code(s): J44.9 - Chronic obstructive pulmonary disease, unspecified Status: Acute DS: Summary Hospital Course Hospital Course: This is a 67-year-old female with a past medical history of bullous emphysema that presented to the hospital floor after having lung biopsy done here [facility]. Lung biopsy resulted in a pneumothorax. During the biopsy procedure patient developed a left apical pneumothorax. Patient did not require oxygen supplementation. Patient had a chest tube placed and was admitted for management and treatment of pneumothorax. General surgery was consulted for management of chest tube. After chest tube was placed x-ray showed near complete resolution of left pneumothorax. Chest x-ray on 09/14/2023 showed resolution of pneumothorax and General surgery had removed chest tube. Repeat chest x-ray 4 hours after tube was removed revealed .... patient did have some complaints of hemoptysis. I had called the on-call gill box fixer and he stated that this can be a complication following a lung biopsy. When reviewing lung biopsy CT patient did have moderate amount of hemorrhaging with her biopsy. Patient will have close follow-up with pulmonology as an outpatient for review of pathology results. Grinder Operator Tool felt comfortable for patient to discharge and close follow-up with them in the office. Time Spent with Patient Time attestation: Total time spent providing and/or coordinating discharge services: Exam Narrative: GENERAL: Comfortable, no acute distress HENMT: moist mucous membranes EYES: EOM intact b/l RESPIRATORY: clear to auscultation CARDIO: RRR CHEST: chest tube in place GI: soft, nontender, bowel sounds present SKIN: no rashes EXTREMITIES: no edema, redness or tenderness DS: Data Data Completed and Pending Labs on day of discharge: Labs from last 24 hours 09/14/23 06:48 WBC 9.7 RBC 4.24 Hgb 12.8 Hct 39.1 MCV 92.2 MCH 30.2 MCHC 32.7 RDW 13.7 Plt Count 389 H MPV 9.2 Sodium 136 L Potassium 3.8 Chloride 105 Carbon Dioxide 27 Anion Gap 4 L BUN 13 Creatinine 0.80 Estim Creat Clear Calc 53 Estimated GFR > 60 Glucose 98 Calcium 9.0 Discharge Plan Discharge Attending physician on discharge: Chiquita Wiggins Consulting providers: Saud Pride Discharging Clinician: Akanksha Valdivia Patient Disposition: Home, Self-Care Activity: as tolerated Diet: regular Discharge Instructions: Close follow-up with pulmonology as an outpatient. Blood in your sputum should improve over the next couple days. This is likely due to lung biopsy. Please call pulmonology office with any new or worsening symptoms or return to the ED. Highly recommend smoking cessation Discharge disposition: Take medications as prescribed Monitor blood pressures Avoid social areas, you wear a mask when in social settings Encouraged to continue with yearly vaccinations Return to the emergency department if he developed sudden shortness of breath, chest pain, nausea, vomiting, upset stomach or intractable diarrhea Ret
== END 2023-09-14 16:48 | disposition home or self-care (01) | DRG 200 ==
LOC: ANH3MEDSUR 18:34
PROVIDERS: Radiology Diagnostic Radiology; Admitting Provider Internal Medicine; PCP Nurse Practitioner Family; Visit Provider Internal Medicine Critical Care Medicine
PROC: BB24ZZZ Computerized Tomography (CT Scan) of Bilateral Lungs (ICD-10-PCS; CPT 32408; principal; 2023-09-12 11:00)
DX: J95.811 Postprocedural pneumothorax (principal); D83.9 Common variable immunodeficiency, unspecified; R04.89 Hemorrhage from other sites in respiratory passages; R91.8 Other nonspecific abnormal finding of lung field; J43.9 Emphysema, unspecified; F17.290 Nicotine dependence, other tobacco product, uncomplicated; Z90.710 Acquired absence of both cervix and uterus; Z88.0 Allergy status to penicillin
CPT/HCPCS: 32408; 32550; 36415; 71045; 71046; 75989; 80048; 85027; 85049; 85610; 88305; 94640; 96360; 96361; A9270; C1729; G0378; G0379; J2270; J7120

== ENCOUNTER 2023-10-02 11:32 | Outpatient (CLI) | payer MEDICARE, SELFPAY ==
--- NOTE | ~2023-10-02 | XR_ITS ---
EXAMINATION: XR chest 2V 10/02/2023 11:59 INDICATION: Productive cough PROCEDURE: 2 view chest COMPARISON: Comparison to multiple prior studies sequentially, with oldest reviewed study dated 05/2023. FINDINGS: The lungs are clear. The cardiomediastinal silhouette is within normal limits. There are no pleural effusions. There is no pneumothorax suspected. IMPRESSION: 1: NO ACUTE CARDIOPULMONARY DISEASE. Reviewed, dictated and finalized at location L. SUPPORT REPRESENTATIVE
== END 2023-10-02 11:33 | disposition home or self-care (01) ==
PROVIDERS: PCP Nurse Practitioner Family; Visit Provider Nurse Practitioner Family
DX: R05.9 Cough, unspecified (principal); R09.3 Abnormal sputum
CPT/HCPCS: 71046; 87015; 87070; 87116; 87181; 87205; 87206

== ENCOUNTER 2023-12-19 12:35 | Outpatient (CLI) | payer MEDICARE, SELFPAY ==
--- NOTE | ~2023-12-19 | CT_ITS ---
CT Scan of the Chest without Contrast: Clinical Indication: Abnormal finding of lung field Technique: Contiguous sections were acquired throughout the chest without intravenous contrast. Dose reduction technique was used on this scan by utilizing automated exposure control and iterative recon struction technique. The dose-length product (DLP) was 159.98 mGy-cm. COMPARISON: 09/03/2023 Findings: There is no evidence of any significant mediastinal, hilar or axillary lymphadenopathy. The mediastin al soft tissues appear normal. There is no evidence of pleural or pericardial effusion. 1.8 cm left upper lobe pulmonary nodule is present, probable tiny central cavitation, similar to prio r exam. Additional 0.9 cm left upper lobe pulmonary nodules also unchanged (axial image 36). Stable 7 mm right upper lobe pulmonary nodule (axial image 35). Stable possible additional 7 mm right upper l obe pulmonary nodule (axial image 46). Images through the upper abdomen reveal no abnormalities. Impression: Stable bilateral pulmonary nodules, largest at the left lung apex measuring 1.8 cm in diameter. Remai dani nodules are all less than 1 cm in diameter. Correlate with prior biopsy results. Reviewed, dictated and finalized at location . Impression: Stable bilateral pulmonary nodules, largest at the left lung apex measuring 1.8 cm in diameter. Remaining nodules are all less than 1 cm in diameter. Correlat e with prior biopsy results.
== END 2023-12-19 12:36 | disposition home or self-care (01) ==
LOC: ANHIMG 12:39
PROVIDERS: PCP Emergency Medicine; Visit Provider Nurse Practitioner Family
DX: R91.8 Other nonspecific abnormal finding of lung field (principal)
CPT/HCPCS: 71250

== ENCOUNTER 2024-05-28 14:04 | Outpatient (CLI) | payer MEDICARE, SELFPAY ==
--- NOTE | ~2024-05-28 | MM_ITS ---
EXAMINATION: MM screening deangelo BI w stephen HISTORY: Screening TECHNIQUE: Craniocaudal and mediolateral oblique 3-D tomosynthesis images were obtained and synthetic 2-D images were generated. CAD analysis was submitted and interpreted. COMPARISON: Comparison to multiple prior studies sequentially, with oldest reviewed study dated 10/2019. BREAST PARENCHYMAL COMPOSITION: Not dense: There are scattered areas of fibroglandular density. FINDINGS: There is no evidence of suspicious mass, calcification, or architectural distortion to sugg est malignancy in either breast. There has been no suspicious interval change. IMPRESSION: 1. No mammographic evidence of malignancy. 2. Recommend routine screening mammography in one year. BI-RADS Category 1: Negative Reviewed, dictated and finalized at location B.
== END 2024-05-28 14:05 | disposition home or self-care (01) ==
LOC: ANHIMG 14:06
PROVIDERS: PCP Emergency Medicine; Visit Provider Emergency Medicine
DX: Z12.31 Encounter for screening mammogram for malignant neoplasm of breast (principal)
CPT/HCPCS: 77063; 77067

== ENCOUNTER 2024-06-23 01:47 | Day surgery (SDC) | payer MEDICARE, SELFPAY ==
[2024-02-18 13:15] VITALS: BMI 23.3
--- NOTE | 2024-02-19 10:06 | PC.NURSE ---
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 Pt called and she agrees that is best also- she is rescheduled to 06/23/2024 at 0930 providing she has adequate improvement.
--- NOTE | 2024-06-22 14:53 | WPDANESEPPF ---
Anes - Initial Pre Proc Eval Procedure: Operation Date: 06/23/24 09:30 Proposed Procedures p Colonoscopy - William Almendarez MD Date/Time: 06/22/24 14:53 Surgeon: William Almendarez MD Pre Op Diagnosis: Family HX colon polyps Patient Data Age: 68 Gender: F Height: 1.63 m Weight: 61.5 kg Allergies Allergy/AdvReac Type Severity Reaction Status Date / Time lodoxamide Allergy Unknown Swollen Verified 06/03/24 08:45 tongue Penicillins Allergy Unknown Rash Verified 06/03/24 08:45 Sulfa (Sulfonamide Allergy Unknown Rash Verified 06/03/24 08:45 Antibiotics) Home Medications Medication Instructions Recorded Confirmed Type azelastine 137 mcg (0.1 %) nasal 137 mcg (0.137 mL) intranasal Q12H 11/13/22 06/03/24 Rx spray #90 mL fluticasone fur. 100 mcg-umeclid 1 inh inhalation DAILY #90 ea 09/04/23 06/03/24 Rx 62.5 mcg-vilant 25 mcg inhalat.powder (Trelegy Ellipta) fluticasone propionate 50 1 spray intranasal BID 09/12/23 06/03/24 History mcg/actuation nasal spray,suspension alendronate 70 mg tablet 70 mg PO WEEKLY #4 tabs 01/06/24 06/03/24 Rx azithromycin 250 mg tablet 250 mg PO DAILY 02/18/24 06/03/24 History ethambutol 400 mg tablet 800 mg PO DAILY 02/18/24 06/03/24 History rifampin 300 mg capsule 600 mg PO DAILY 02/18/24 06/03/24 History albuterol sulfate 2.5 mg/3 mL 2.5 mg (3 mL) inhalation Q6H PRN 02/27/24 06/03/24 Rx (0.083 %) solution for nebulization shortness of breath or wheezing #180 mL sodium chloride 3 % for 4 ml inhalation Q8H PRN secretions 02/27/24 06/03/24 Rx nebulization #1,080 mL albuterol sulfate 90 mcg/actuation 1 - 2 puff inhalation Q4-6H PRN 03/29/24 06/03/24 Rx aerosol inhaler shortness of breath or wheezing #42.5 grams montelukast 10 mg tablet See Rx Instructions .Route 05/25/24 06/03/24 Rx .COMPLEX #90 tabs Patient hx anesthesia problems: none Family hx anesthesia problems: none Results Review: All pre-operative results and documents have been reviewed as part of the pre-operative evaluation. [facility] Past Medical History Medical History Asthma CVID (common variable immunodeficiency) Pneumonia due to aerobic bacteria Pulmonary nodules Recurrent pneumonia Seasonal allergic rhinitis Surgical History Surgical History H/O total hysterectomy Family History Family History Father Acute myocardial infarction, Onset Age: 45 Family history of cardiovascular disease, Onset Age: 45 Mother Family history of chronic obstructive pulmonary disease, Onset Age: 79 Family history of dementia, Onset Age: 79 Family history of mental disorder Sibling Patient's brother is in good health Social History Social History Smoking packs per day: 1 Smoking cigarettes per day: 20.0 Years smoked: 40 Smoking pack-years: 40.00 Smoking status: Current every day smoker Tobacco type: cigarettes Alcohol intake: never Drinks per week: 1 Substance use: never Substance use type: does not use Do You Feel Safe in your Home?: Yes Lack of Transportation: No Lack of Food: Never True Current Housing: I Have Housing Concerned About Future Housing: No Difficulty Paying Gas/Electric Bills: No Difficulty Paying for Meds: No Currently Unemployed: No Education: Decline to Answer Difficulty w/ Childcare or Family Care: No Living arrangements: with family Spiritual care concerns: No Anes - Eval Final PreProcedure Day of Procedure 06/22/24 14:53 Patient weight: normal Heart: regular rate and rhythm Lungs: clear to auscultation Airway: Mallampati scale class II Neurological: alert and oriented Last oral intake: >/= 8 hours ASA classification: II Emergent
[2024-06-23 08:16] VITALS: BP 152/78; PULSE 91; RESP 16; TEMP 36.2; O2SAT 99
[2024-06-23] MEDS: LACTATED RINGERS 1,000 ML 150 ML IV CONT (08:25)
--- NOTE | 2024-06-23 08:51 | PM.HPGS ---
History of Present Illness History of Present Illness Consent: Risks, benefits, and alternatives have been discussed and questions answered. Patient agrees to proceed with procedure. Chief complaint: Family HX colon polyps Narrative: Kirstin Davis is a 68 year old female here for screening colonoscopy, last one 2016 Review of Systems Review of Systems: All systems reviewed & are unremarkable except as noted in HPI and below PMFSH Past Medical History Medical History Asthma CVID (common variable immunodeficiency) Pneumonia due to aerobic bacteria Pulmonary nodules Recurrent pneumonia Seasonal allergic rhinitis Surgical History Surgical History H/O total hysterectomy Family History Family History Father Acute myocardial infarction, Onset Age: 45 Family history of cardiovascular disease, Onset Age: 45 Mother Family history of chronic obstructive pulmonary disease, Onset Age: 79 Family history of dementia, Onset Age: 79 Family history of mental disorder Sibling Patient's brother is in good health Social History Social History Smoking packs per day: 1 Smoking cigarettes per day: 20.0 Years smoked: 40 Smoking pack-years: 40.00 Smoking status: Current every day smoker Tobacco type: cigarettes Alcohol intake: never Drinks per week: 1 Substance use: never Substance use type: does not use Do You Feel Safe in your Home?: Yes Lack of Transportation: No Lack of Food: Never True Current Housing: I Have Housing Concerned About Future Housing: No Difficulty Paying Gas/Electric Bills: No Difficulty Paying for Meds: No Currently Unemployed: No Education: Decline to Answer Difficulty w/ Childcare or Family Care: No Living arrangements: with family Spiritual care concerns: No Meds Home Medications and Allergies Home Medications Medication Instructions Recorded Confirmed Type azelastine 137 mcg (0.1 %) nasal 137 mcg (0.137 mL) intranasal Q12H 11/13/22 06/23/24 Rx spray #90 mL fluticasone fur. 100 mcg-umeclid 1 inh inhalation DAILY #90 ea 09/04/23 06/23/24 Rx 62.5 mcg-vilant 25 mcg inhalat.powder (Trelegy Ellipta) fluticasone propionate 50 1 spray intranasal BID 09/12/23 06/23/24 History mcg/actuation nasal spray,suspension alendronate 70 mg tablet 70 mg PO WEEKLY #4 tabs 01/06/24 06/23/24 Rx azithromycin 250 mg tablet 250 mg PO DAILY 02/18/24 06/23/24 History ethambutol 400 mg tablet 800 mg PO DAILY 02/18/24 06/23/24 History rifampin 300 mg capsule 600 mg PO DAILY 02/18/24 06/23/24 History albuterol sulfate 2.5 mg/3 mL 2.5 mg (3 mL) inhalation Q6H PRN 02/27/24 06/23/24 Rx (0.083 %) solution for nebulization shortness of breath or wheezing #180 mL sodium chloride 3 % for 4 ml inhalation Q8H PRN secretions 02/27/24 06/23/24 Rx nebulization #1,080 mL albuterol sulfate 90 mcg/actuation 1 - 2 puff inhalation Q4-6H PRN 03/29/24 06/23/24 Rx aerosol inhaler shortness of breath or wheezing #42.5 grams montelukast 10 mg tablet See Rx Instructions .Route 05/25/24 06/23/24 Rx .COMPLEX #90 tabs Allergies Allergy/AdvReac Type Severity Reaction Status Date / Time lodoxamide Allergy Unknown Swollen Verified 06/23/24 08:14 tongue Penicillins Allergy Unknown Rash Verified 06/23/24 08:14 Sulfa (Sulfonamide Allergy Unknown Rash Verified 06/23/24 08:14 Antibiotics) Vital Signs Vital Signs - 24 hr 06/23/24 08:16 Temperature 97.2 F L Pulse Rate 91 Respiratory Rate 16 Blood Pressure 152/78 H Pulse Oximetry 99 Oxygen Delivery Room Air Exam Const: General: comfortable and no acute distress HENMT: Face/Nose/Sinus: Normal nares present Eyes: General: appearance normal, both
[2024-06-23 09:38] VITALS: BP 103/67; PULSE 67; RESP 21; O2SAT 100
[2024-06-23 09:48] VITALS: BP 117/73; PULSE 70; RESP 26; O2SAT 99
[2024-06-23 09:58] VITALS: BP 129/63; PULSE 58; RESP 19; O2SAT 100
== END 2024-06-23 10:07 | disposition home or self-care (01) ==
PROVIDERS: PCP Emergency Medicine; Referring Provider Emergency Medicine; Visit Provider Internal Medicine Gastroenterology
PROC: 0DJD8ZZ Inspection of Lower Intestinal Tract, Via Natural or Artificial Opening Endoscopic (ICD-10-PCS; CPT 45378; principal; 2024-06-23 09:30)
DX: Z12.11 Encounter for screening for malignant neoplasm of colon (principal); K64.8 Other hemorrhoids; K57.30 Diverticulosis of large intestine without perforation or abscess without bleeding; J45.909 Unspecified asthma, uncomplicated; D83.9 Common variable immunodeficiency, unspecified; F17.210 Nicotine dependence, cigarettes, uncomplicated; Z79.51 Long term (current) use of inhaled steroids; Z79.83 Long term (current) use of bisphosphonates; Z98.890 Other specified postprocedural states; Z83.719 Family history of colon polyps, unspecified; Z82.49 Family history of ischemic heart disease and other diseases of the circulatory system
CPT/HCPCS: G0105; J2001; J2704; J7120

== ENCOUNTER 2025-03-15 12:15 | Outpatient (CLI) | payer MEDICARE, SELFPAY ==
--- NOTE | ~2025-03-15 | PE_ITS ---
EXAMINATION: PET skull to mid thigh DATE: 03/15/2025 14:26 INDICATION: Abnormal findings of lung field TECHNIQUE: Blood glucose level was 104 mg/dL. 9.266 mCi of 18-fluorodeoxyglucose (18-FDG) was adminis tered i.v. Low dose computed tomography (CT) images were acquired from the base of the brain to the p roximal thighs for attenuation correction and anatomic localization. Positron emission tomography (PE T) images were acquired in the same distribution beginning 52 minutes after injection. Images includi ng fused PET/CT images were reconstructed in axial, coronal, and sagittal planes. Automated exposure control technique was employed. The dose-length product was 645.28mGy-cm. COMPARISON: CT dated 12/05/2021 FINDINGS: Head/neck: There is symmetric increased activity in the oral cavity, parotid glands, laryngeal muscles, masseter muscles and ocular muscles without CT correlate, likely physiologic. Additional likely physiologic m ild uptake extending craniocaudally along the bilateral scalene muscles, left greater than right. No pathologically enlarged cervical lymphadenopathy or suspicious foci of increased FDG uptake in the vi sualized head or neck. Chest: Relatively symmetric increased uptake without radiologic correlate involving the musculature of the b ilateral shoulders and upper arms. There is a new 1.7 cm left apical nodule with small amount of inte rnal calcification and without abnormally increased FDG activity which would be consistent with seque la of old granulomatous disease. No other suspicious pulmonary nodules, pulmonary edema or pleural ef fusion. Heart size is normal. Atherosclerotic coronary artery calcification. Thoracic aorta is normal in caliber. Small sliding-type hiatal hernia. No pathologically enlarged thoracic lymphadenopathy. Abdomen/pelvis/proximal thighs: Physiologic renal accumulation and excretion of FDG activity in the kidneys, bladder and along portio ns of ureters. Photopenic defect associated with a 2 cm low-attenuation cyst in segment 6 of the righ t hepatic lobe additional smaller 8 mm low-attenuation cyst in segment 7 of the right hepatic lobe wh ich is too small to be discernible on the PET imaging. Otherwise normal degree and heterogenous patte rn of increased uptake throughout the liver without radiologic correlate or dominant FDG avid lesion. The gallbladder, pancreas, spleen and bilateral adrenal glands are normal. Mild uptake scattered thr oughout the bowels without radiologic correlate, also likely physiologic. There is mild colonic diver ticulosis with a sigmoid predominance. There is no adjacent inflammatory change to suggest diverticu litis. Normal appendix. No other abnormal foci of increased FDG uptake or pathologically enlarged lym phadenopathy in the abdomen, pelvis or proximal thighs. Musculoskeletal: There is mild uptake overlying the bilateral greater trochanters consistent with trochanteric bursiti s. There are couple small sclerotic bone islands in the L3 vertebral body without abnormal FDG activi ty. No suspicious lytic, blastic or abnormally FDG avid bone lesions. IMPRESSION: 1. No abnormal FDG uptake associated with a 1.7 cm left apical nodule with some central calcification consistent with old granulomatous disease. No FDG avid lesions suspicious for primary or metastatic disease in the visualized head, neck, chest, abdomen, pelvis or proximal thighs. Reviewed, dictated and finalized at location A. IMPRESSION: 1. No abnormal FDG uptake associated with a 1.7 cm left apical nodule with some central calcification consistent with old granulomatous disease. No FDG avid l esions suspicious for primary or metastatic disease in the visualized head, nec k, chest, abdomen, pelvis or proximal thighs.
[2025-03-15 12:38] LABS: Glucose Point of Care 104 mg/dl (65-105)
--- OUTSIDE RECORDS SUMMARY | 2025-03-15 13:12 | XMS_ITS | Clinical Summary ---
Author Organization [facility] Address [address] [place] [id number] Care Team Providers Care Ramp Jockey Name Role Phone Daniel Edward NP Primary Care Provider [phone] Allergies Active Allergy Reactions Criticality Noted Date Comments Penicillins Rash Medium 11/28/2023 Medications albuterol HFA (PROVENTIL HFA,VENTOLIN HFA,PROAIR HFA) 90 mcg/actuation inhaler Inhale 2 puffs every 4 (four) hours as needed Active alendronate (FOSAMAX) 70 mg tablet Take 1 tablet (70 mg total) by mouth every 7 days Active azelastine (ASTELIN) 137 mcg (0.1 %) nasal spray Administer 2 sprays into each nostril 2 (two) times a day Active fluticasone propionate (FLONASE) 50 mcg/actuation nasal spray Administer 2 sprays into each nostril 2 (two) times a day Active montelukast (SINGULAIR) 10 mg tablet Take 1 tablet (10 mg total) by mouth nightly Active Trelegy Ellipta 100-62.5-25 mcg inhaler Inhale 1 puff daily Active sodium chloride 3 % nebulizer solution USE 1 VIAL VIA NEBULIZER EVERY 8 HOURS NEEDED FOR SECRETIONS. Active ipratropium-albu teroL (DUO-NEB) 0.5-2.5 mg/3 mL nebulizer solutionIndicati ons:Chronic Obstructive Pulmonary Disease with Bronchospasms Take 3 mL by nebulization every 6 (six) hours 180 mL Active dextromethorphan -guaiFENesin (ROBITUSSIN-DM) 2-20 mg/mL liquid Take 10 mL by mouth 4 (four) times a day as needed for cough 118 mL Active rifAMPin (RIFADIN) 300 mg capsule TAKE 2 CAPSULES(600 MG) BY MOUTH 3 TIMES A WEEK 24 capsule 2 Active ethambutoL (MYAMBUTOL) 400 mg tablet TAKE 3 AND 1/2 TABLETS(1400 MG) BY MOUTH 3 TIMES A WEEK 42 tablet 2 Active azithromycin (ZITHROMAX) 500 mg tablet TAKE 1 TABLET BY MOUTH 3 TIMES A WEEK 12 tablet 2 Active ethambutoL (MYAMBUTOL) 400 mg tablet TAKE 3 AND 1/2 TABLETS(1400 MG) BY MOUTH 3 TIMES A WEEK 42 tablet 2 025 2024 Discontinued azithromycin (ZITHROMAX) 500 mg tablet TAKE 1 TABLET BY MOUTH 3 TIMES A WEEK 12 tablet 2 025 2024 Discontinued rifAMPin (RIFADIN) 300 mg capsule Take 2 capsules (600 mg total) by mouth 3 (three) times a week 24 capsule 2 025 2024 Discontinued predniSONE (DELTASONE) 5 mg tablet Take 6 tablets (30 mg) by mouth daily for 2 days, THEN 4 tablets (20 mg) daily for 3 days, THEN 3 tablets (15 mg) daily for 3 days, THEN 2 tablets (10 mg) daily for 3 days, THEN 1 tablet (5 mg) daily for 3 days. 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 Encounters Date Type Department Care Team Description 03/02/2025 2:45 PM CDT Lab [facility] Lab [facility] [place] [address] Mycobacterium avium-intracellulare complex (HCC) 02/15/2025 3:44 PM CDT - 02/18/2025 11:32 AM CDT Hospital Encounter [address] [address] Valerie Correia MD Medavaram, Atul, MD Altwal, Shadi Adel, MD Shortness of breath (Primary Dx); COPD exacerbation (HCC); Hypoxemia Discharge Disposition: Discharge to home or self care 12/14/2024 10:57 AM CDT - 12/14/2024 11:59 PM CDT Hospital Encounter [facility] [address] [place] [address] Mycobacterium avium-intracellulare complex (HCC) Discharge Disposition: Discharge to home or self care 12/14/2024 9:40 AM CDT Office Visit [facility] [address] [phone] Angela Chapa, NATALIE Mycobacterium avium-intracellulare complex (HCC) (Primary Dx) 12/14/2024 Telephone [facility] [address] [phone] Stefany Posadas, [facility] RSV vaccine administered from Last 3 Months Immunizations Immunization Administration Dates Next Due Influenza, Quadrivalent, Split, Intramuscular Influenza, Quadrivalent, Spl it, Preservative Free, Intramuscular 09/11/2022,06/28/2020 Influenza, Trivalent, Recomb inant, Egg Free, Preservative Free, Antibiotic Free, IM (FLUBLOK) 09/14/2024 Pneumococcal Conjugate Pcv20 12/14/2024 Pneumococcal Polysaccharide PPV23 08/01/2019 RSV Vaccine, Pref, Recombina nt, Subunit, Adjuvanted, PF, IM (Arexvy) 12/14/2024 Social History Tobacco Use Types Packs/Day Years Used Date Smoking Tobacco: Every Day Cigarettes 1 55.4 Started: 1970 Cigars Tobacco Cessation:Ready to Q uit: Not Asked; Counseling Given: Not Answered [facility] Utilities Answer Date Recorded In the past 12 months has th e [employer], gas, oil, or water [employer] threatened to shut off services in your home? No 02/16/2025 Social Connection and Isolation Panel [NHANES] A nswer Date Recorded In a typical week, how many times do you talk on the phone with family, friends, or neighbors? Three times a week 02/16/2025 How often do you get togethe r with friends or relatives? Three times a week 02/16/2025 How often do you attend chur ch or worship services? Never 02/16/2025 Do you belong to any clubs o r organizations such as spiritism groups, unions, fraternal or athletic groups, or school groups? No 02/16/2025 How often do you attend meet ings of the clubs or organizations you belong to? Never 02/16/2025 Are you , , di vorced, , never , or living with a partner? 02/16/2025 Overall Financial Resource Strain (CARDIA) Answe r Date Recorded How hard is it for you to pa y for the very basics like food, housing, medical care, and heating? Not hard at all 02/16/2025 Hunger Vital Sign Answer Date Recorded Within the past 12 months, y ou worried that your food would run out before you got the money to buy more. Never true 02/17/20 25 Within the past 12 months, t he food you bought just didn't last and you didn't have money to get more. Never true 02/16/2025 PRAPARE - Transportation Answer Date Re corded In the past 12 months, has l ack of transportation kept you from medical appointments or from getting medications? No 02/03 In the past 12 months, has l ack of transportation kept you from meetings, work, or from getting things needed for daily living? No 02/16/2025 Housing Stability Vital Sign Answer Michael e Recorded In the last 12 months, was t here a time when you were not able to pay the mortgage or rent on time? No 02/16/2025 In the past 12 months, how m any times have you moved where you were living? 0 02/16/2025 At any time in the past 12 m [facility], were you homeless or living in a care home (including now)? No 02/16/2025 Personal Safety Answer Date Recorded Have you ever been in or are you currently in a harmful physical or emotional relationship or is someone making you feel afraid or unsafe? Denies 02/15/2025 Comments Unknown Sex and Gender Information Value Date Recorded Sex Assigned at Not on file Legal Sex Female 7:45 PM [employer] Gender Identity Not on file Sexual Orientation Not on file Obstetrics History Last Filed Vital Signs Vital Sign Reading Time Taken Comments Blood Pressure 124/73 02/18/2025 10:32 AM CDT Pulse 83 02/18/2025 10:32 AM CDT Temperature 36.9 C (98.4 F) 02/18/2025 10:32 AM CDT Respiratory Rate 20 02/18/2025 10:32 AM CDT Oxygen Saturation 92% 02/18/2025 10:32 AM CDT Inhaled Oxygen Concentration - - Weight 67.5 kg (148 lb 13 oz) 02/17/2025 7:33 AM CDT Height 162.6 cm (5' 4.02) 02/17/2025 7:33 AM CD T Body Mass Index 25.53 02/17/2025 7:33 AM CDT Plan of Treatment Health Maintenance Due Date Last Done Comments Breast Cancer Screening-Mammogram 1955 Colon Cancer Screening-Colonoscopy 1955 Depression Screening 1955 Osteoporosis Screening-Bone Density Scan 1955 DTaP/Tdap/Td Vaccine (1 - Tdap) 1968 Hepatitis B Screening 1975 Lung Cancer Screening 2007 Zoster Vaccine (1 of 2) 2007 Well Visit 65+ 2022 Covid-19 Vaccine (5 - 2023-2 5 season) 2024 09/11/2022, 08/01/2021, 12/18/2020, Additional history exists Fall Risk Assessment 02/18/2026 02/18/2025 Hepatitis C Screening Completed 02/27/2024 Influenza Vaccine Completed 09/14/2024, , 06/28/2020, Additional history exists Pneumococcal vaccine 65+ Completed 12/14/2024, 07/07 Procedures Procedure Name Priority Date/Time Associated Diagnosis Comments MYCOBACTERIOLOGY AFB CULTURE AND ACID-FAST STAIN Routine 03/02/2025 3:07 PM CDT Mycobacterium avium-intracellular e complex (HCC) XR CHEST PA LATERAL 2 VIEWS IP Routine 02/18/2025 8:55 AM CDT EGFR Routine 02/18/2025 7:29 AM CDT CBC WITHOUT DIFFERENTIAL Routine 02/18/2025 7:29 AM CDT BASIC METABOLIC PANEL Routine 02/18/2025 7:29 AM CDT TRANSTHORACIC ECHO (TTE) COMPLETE W DOPPLER/CF WO CONTRAST Routine 02/17/2025 2:32 PM CDT MAGNESIUM Routine 02/17/2025 5:35 AM CDT EGFR Routine 02/17/2025 5:35 AM CDT CBC WITHOUT DIFFERENTIAL Routine 02/17/2025 5:35 AM CDT BASIC METABOLIC PANEL Routine 02/17/2025 5:35 AM CDT EGFR Routine 02/16/2025 6:56 AM CDT CBC WITHOUT DIFFERENTIAL Routine 02/16/2025 6:56 AM CDT BASIC METABOLIC PANEL Routine 02/16/2025 6:56 AM CDT TROPONIN T HIGH-SENSITIVITY 6-HOUR Timed 02/15/2025 8:07 PM CDT INFLUENZA A/B, RSV, AND COVID-19 PCR STAT 02/15/2025 6:03 PM CDT TROPONIN T HIGH-SENSITIVITY 4-HR Timed 02/15/2025 6:[address] CHEST PE W CONTRAST ED 5:27 PM CDT POC BLOOD GAS AND CHEMISTRIES, ARTERIAL Routine 02/15/2025 4:47 PM CDT XR CHEST PA LATERAL 2 VIEWS ED 02/15/2025 2:49 PM CDT ECG 12-LEAD STAT 02/15/2025 2:09 PM CDT MAGNESIUM STAT 02/15/2025 2:08 PM CDT EGFR STAT 02/15/2025 2:08 PM CDT DIFFERENTIAL AUTO STAT 02/15/2025 2:0 8 PM CDT PRO B-TYPE NATRIURETIC PEPTIDE STAT 02/15/2025 2:08 PM CDT TROPONIN T HIGH-SENSITIVITY SERIES (BASELINE, 2HR, 4HR, 6HR) STAT 02/15/2025 2:08 PM CDT COMPREHENSIVE METABOLIC PANEL STAT 02/15/2025 2:08 PM CDT CBC WITH AUTO DIFFERENTIAL STAT 02/15/2025 2:08 PM CDT MYCOBACTERIOLOGY AFB CULTURE AND ACID-FAST STAIN Routine 12/14/2024 3:00 PM CDT Mycobacterium avium-intracellular e complex (HCC) EGFR Routine 12/14/2024 10:57 AM CDT Mycobacterium avium-intracellular e complex (HCC) DIFFERENTIAL AUTO Routine 12/14/2024 10: 57 AM CDT Mycobacterium avium-intracellular e complex (HCC) GLUCOSE, RANDOM (OUTREACH) Routine 12/14/2024 10:57 AM CDT Mycobacterium avium-intracellular e complex (HCC) COMPREHENSIVE METABOLIC PANEL WITHOUT GLUCOSE (OUTREACH) Routine 12/14/2024 10:57 AM CDT Mycobacterium avium-intracellular e complex (HCC) CBC WITH AUTO DIFFERENTIAL Routine 12/14/2024 10:57 AM CDT Mycobacterium avium-intracellular e complex (HCC) COMPREHENSIVE METABOLIC PANEL (OUTREACH) Routine 12/14/2024 10:57 AM CDT Mycobacterium avium-intracellular e complex (HCC) HEPATITIS C ANTIBODY Routine 02/27/2024 11:38 AM CDT Pulmonary mycobacterial infection (HCC) from Last 3 Months or Most Recently Relevant to Health Maintenance Results * XR Chest Pa Lateral 2 Views (02/18/2025 8:55 AM CDT) Anatomical Region Laterality Modality Body, Chest N/A Computed Radiogr aphy 02/18/2025 12:0 4 PM CDT Narrative 02/18/2025 12:06 PM CDT EXAM DESCRIPTION: XR CHEST PA LATERAL 2 VIEWS REASON FOR STUDY: Emphysema Emphysema per order reasoning. Per EMR: PMHx of COPD and lung nodule TECHNIQUE: Two views COMPARISON: 02/15/2025 FINDINGS: Heart size and vascularity appear normal. Aortic arch well-defined left. Central vascularity are somewhat ill-defined with perihilar interstitial densities similar to slightly increased from prior exam which may indicate developing vascular congestion or peribronchial inflammation. Lungs are hyperexpanded suggesting air trapping emphysema without focal consolidation, effusion or pneumothorax. Left upper lobe nodule further defined on CT of 02/15/2025 is grossly unchanged. IMPRESSION: Perihilar densities may indicate developing vascular congestion or peribronchial inflammation. Left upper lobe nodule grossly unchanged. THIS IS AN ELECTRONICALLY VERIFIED FINAL REPORT 02/18/2025 12:06 PM - Electronically signed by Gabo Maria M.D. RB T: Report ID: [id number] Reading Location: [id number] Procedure Note aGbo Maria MD - 02/18/2025 EXAM DESCRIPTION: XR CHEST PA LATERAL 2 VIEWS REASON FOR STUDY: Emphysema Emphysema per order reasoning. Per EMR: PMHx of COPD and lung nodule TECHNIQUE: Two views COMPARISON: 02/15/2025 FINDINGS: Heart size and vascularity appear normal. Aortic arch well-definedleft. Central vascularity are somewhat ill-defined with perihilar interstitial densities similar to slightly increased from prior exam which may indicate developing vascular congestion or peribronchial inflammation. Lungs are hyperexpanded suggesting air trapping emphysema without focal consolidation, effusion or pneumothorax. Left upper lobe nodule further defined on CT of 02/15/2025 is grossly unchanged. IMPRESSION: Perihilar densities may indicate developing vascular congestion or peribronchial inflammation. Left upper lobe nodule grossly unchanged. THIS IS AN ELECTRONICALLY VERIFIED FINAL REPORT 02/18/2025 12:06 PM - Electronically signed by Gabo Maria M.D. RB T: Report ID: [id number] Reading Location: [place] [address] us Cristiano Rodriguez MD IMG XR PROCEDURES Final Res ult * eGFR (02/18/2025 7:29 AM CDT) eGFR 80 >=60 mL/min/1. 73 m2 Comment: Interpretive Data Reference Interval Normal >/= 90 mL/min/1.73m2 Mildly decreased* 60 - 89 mL/min/1.73m2 Mildly to moderately decreased 45 - 59 mL/min/1.73m2 Moderately to severely decreased 30 - 44 mL/min/1.73m2 Severely decreased 15 - 29 mL/min/1.73m2 Kidney Failure < 15 mL/min/1.73m2 *Relative to young adult level Estimated glomerular filtration rate is determined by the 2020 CKD-EPI equation recommended by the National Kidney Foundation (A Unifying Approach to GFR Estimation: Recommendations of the NKF-ASK Task Force on Reassessing the Inclusion of Race in Diagnosing Kidney Disease, JASN 202). The CKD-EPI equation should not be used for patients with unstable renal function and has not been validated in children and those over 70. Current interpretive data was last reviewed 2021. Blood 02/18/2025 7:29 AM CDT 02/18/2025 7:35 AM CDT us Darek Potts MD LAB BLOOD ORDERABLES Final Res ult [facility] [address] [facility] Department [place] [address] * CBC without differential (02/18/2025 7:29 AM CDT) [facility] WBC 6.09 3.80 - 9.90 K/cumm Hgb 12.7 11.9 - 15.5 g/dL [facility] Hct 38.3 35.6 - 45.5 % [facility] Plt 311 150 - 400 K/cumm [facility] MPV 9.2 9.1 - 12.3 fL [facility] RBC 4.15 3.90 - 5.20 M/cumm [facility] MCV 92.3 81.3 - 96.4 fL [facility] MCH 30.6 27.1 - 33.3 pg [facility] MCHC 33.2 32.3 - 35.7 g/dL [facility] RDW CV 13.6 11.1 - 14.9 % [facility] RDW SD 46.4 35.7 - 48.1 fL [facility] NRBC abs 0.00 0.00 - 0.01 K/cumm [facility] Blood 02/18/2025 7:29 AM CDT 02/18/2025 7:35 AM CDT us Darek Potts MD LAB BLOOD ORDERABLES Final Res ult [facility] [address] [facility] Department [place] [address] * Basic metabolic panel (02/18/2025 7:29 AM CDT) [facility] Sodium 140 135 - 145 mmol/L Potassium, pl 3.5 3.3 - 4.9 mmol/L [facility] Chloride 104 97 - 110 mmol/L [facility] CO2 24 22 - 32 mmol/L [facility] Anion gap 12 2 - 15 mmol/L [facility] BUN 9 6 - 25 mg/dL [facility] Creatinine 0.81 0.60 - 1.10 mg/dL [facility] Glucose 89 70 - 199 mg/dL [facility] Comment: Interpretive Data Fasting glucose >/= 126 mg/dl is diagnostic for diabetes. Fasting is defined as no caloric intake for at least 8 hours. Fasting glucose between 100 mg/dl to 125 mg/dl is diagnostic of prediabetes. In a patient with classic symptoms of hyperglycemia or hyperglycemic crisis, a random glucose >/= 200 mg/dl is diagnostic for diabetes. In the absence of unequivocal hyperglycemia, results should be confirmed by repeat testing. The classification and Diagnosis of Diabetes Diabetes Care 202; 46: S19-S40. Current interpretive data was last revised 2022. Calcium 9.1 8.5 - 10.3 mg/dL [facility] Blood 02/18/2025 7:29 AM CDT 02/18/2025 7:35 AM CDT us Darek Potts MD LAB BLOOD ORDERABLES Final Res ult [facility] [address] [facility] Department [place] [address] * TRANSTHORACIC ECHO (TTE) COMPLETE W DOPPLER/CF WO CONTRAST (02/17/2025 2:32 PM CDT) EF Mod BP 66 % CONS SCIMAGE Anatomical Region Laterality Modality Ultrasound 02/17/2025 1:58 PM CDT Narrative 02/18/2025 12:32 AM CDT Transthoracic Echocardiographic Report Patient Name: MERA DAVIS F : 1955 (69y 4m) Gender: F Study Date: 02/17/2025 01:58:13 PM Ht(Inch): 64 Wt(Lb): 147.99 BSA: 1.74 Pipe Bender: Patricia Lucero RDCS Location: [id number] Order Provider: CRISTIANO RODRIGUEZ Heart Rate: 75 BMI: 25.4 BP: 110/96 Ref Provider: CRISTIANO RODRIGUEZ PROCEDURES: Echocardiographic Report: ([id number]) Transthoracic complete echo, 2D, spectral and tissue Doppler, color flow Doppler, M-mode. INDICATIONS: Dyspnea. FINDINGS: Left Ventricle: Normal left ventricular cavity size. Normal Left ventricular wall thickness. Normal left ventricular systolic function. The Ejection Fraction (Cheema's) is measured at 66 %. Diastolic Function E to E' ratio is >15 suggesting a high pulminary wedge pressure and LV diastolic dysfunction and left ventricular diastolic parameters are consistent with Grade I diastolic dysfunction (normal LA pressure). Regional Wall Motion: There are no regional wall motion abnormalities. Right Ventricle: Normal right ventricular size. Normal right ventricular systolic function. Left Atrium: Mildly dilated left atrium. Right Atrium: The right atrium is normal in size. Atrial Septum: No shunt by color Doppler. Mitral Valve: Normal mitral valve leaflet structure. No mitral regurgitation seen. No mitral valve stenosis. Aortic Valve: Trileaflet aortic valve. The aortic cusps appear mildly sclerosed. No aortic regurgitation seen. No aortic valve stenosis. The mean transaortic gradient is 6 mmHg. Tricuspid Valve: The tricuspid valve demonstrates normal leaflet structure. No tricuspid regurgitation seen. The estimated right ventricular systolic pressure is 32 mmHg. Normal estimated pulmonary artery systolic pressure. No tricuspid valve stenosis. Pulmonic Valve: No evidence of pulmonic regurgitation. Pericardium: No pericardial effusion noted. Aorta: Normal aortic root. The aortic Sinus is normal in size. IVC: IVC is normal in size. The estimated RA pressure is 3 mmHg. CONCLUSIONS: 1. Normal left ventricular systolic function. The Ejection Fraction (Cheema's) is measured at 66 %. 2. Mildly dilated left atrium. 3. There are no regional wall motion abnormalities. MEASUREMENTS: 2D/MM Value Range Doppler Value LVIDd 2D 3.93 cm [ 3.50 - 5.70 ] AV Peak Denzel 1.63 m/s LVIDs 2D 2.77 cm [ 3.10 - 4.60 ] AV Peak PG 10.63 mmHg IVSd 2D 1.18 cm [ 0.60 - 1.20 ] AV Mean PG 6.00 mmHg LVPWd 2D 1.18 cm [ 0.60 - 1.10 ] AV VTI 33.60 cm LV Thickness Ratio 1.00 LVOT Peak Denzel 1.17 m/s LV Mass 2D 159.09 g LVOT Peak PG 5.48 mmHg LV Mass Index 2D 91.43 g/m2 LVOT Mean PG 3.00 mmHg RWT 0.60 LVOT VTI 23.00 cm EDV Mod BP 66.10 ml [ 46.00 - 106.00 ] LVOT Diam 1.90 cm LV EDV Index 37.99 ml/m2 ARON VTI 1.94 cm2 ESV Mod BP 22.40 ml [ 14.00 - 42.00 ] ARON Vmax 2.03 cm2 EF Mod BP 66 % [ 54 - 74 ] LVOT/AV VTI 0.68 - Dimensionless index (DVI) LA Dimension 2D 3.90 cm [ 1.90 - 4.00 ] MV E Peak Denzel 1.30 m/s LA Length 2C 5.49 cm MV A Peak Denzel 1.50 m/s LA Length 4C 5.53 cm MV E/A 0.90 ratio LA Volume BP 77.70 ml MV Decel Time 311.00 msec LA Volume Index 44.66 ml/m2 [ 16.00 - 34.00 ] Med E` Denzel 8.75 cm/sec TAPSE 3.47 cm [ 1.71 - 5.00 ] Lat E` Denzel 7.61 cm/sec RA Volume 32.80 ml Average E/E` 15.89 RA Volume Index 18.85 ml/m2 RV S` 16.60 cm/sec TR Peak Denzel 2.70 m/s TR Peak PG 29.2 mmHg RA Pressure 3.00 mmHg RVSP 32.20 mmHg PV Peak Denzel 1.07 m/s PV Peak PG 4.58 mmHg PV Mean PG 3.00 mmHg PI ED Denzel 128.00 cm/sec RVOT VTI 16.10 - ATTESTATION: I have reviewed and interpreted the pertinent images and measurements of this study. I attest to the conclusions in the final report that is provided above. DISCLAIMER: The study images and the final report will be retained in the patient chart by the [facility] Laboratory for the legally required time period. This chart constitutes the legal record of any testing performed. Electronically Signed By: Deanna Almendarez MD 02/18/2025 12:32:09 AM CDT Procedure Note Deanna Almendarez MD - 02/18/2025 Transthoracic Echocardiographic Report Patient Name: MERA DAVIS F : 1955 (69y 4m) Gender: F Study Date: 02/17/2025 01:58:13 PM Ht(Inch): 64 Wt(Lb): 147.99 BSA: 1.74 Pipe Bender: Patricia Lucero RDCS Location: [place] [id number] Order Provider:CRISTIANO RODRIGUEZ Heart Rate: 75 BMI: 25.4 BP: 110/96 Ref Provider: CRISTIANO RODRIGUEZ PROCEDURES: Echocardiographic Report: ([id number]) Transthoracic complete echo, 2D,spectral and tissue Doppler, color flow Doppler, M-mode. INDICATIONS: Dyspnea. FINDINGS: Left Ventricle: Normal left ventricular cavity size. Normal Leftventricular wall thickness. Normal left ventricular systolic function. The EjectionFraction (Cheema's) is measured at 66 %. Diastolic Function E to E' ratio is >15 suggesting ahigh pulminary wedge pressure and LV diastolic dysfunction and left ventricular diastolicparameters are consistent with Grade I diastolic dysfunction (normal LA pressure). Regional Wall Motion: There are no regional wall motion abnormalities. Right Ventricle: Normal right ventricular size. Normal right ventricularsystolic function. Left Atrium: Mildly dilated left atrium. Right Atrium: The right atrium is normal in size. Atrial Septum: No shunt by color Doppler. Mitral Valve: Normal mitral valve leaflet structure. No mitralregurgitation seen. No mitral valve stenosis. Aortic Valve: Trileaflet aortic valve. The aortic cusps appear mildlysclerosed. No aortic regurgitation seen. No aortic valve stenosis. The mean transaorticgradient is 6 mmHg. Tricuspid Valve: The tricuspid valve demonstrates normal leafletstructure. No tricuspid regurgitation seen. The estimated right ventricular systolic pressure is32 mmHg. Normal estimated pulmonary artery systolic pressure. No tricuspid valvestenosis. Pulmonic Valve: No evidence of pulmonic regurgitation. Pericardium: No pericardial effusion noted. Aorta: Normal aortic root. The aortic Sinus is normal in size. IVC: IVC is normal in size. The estimated RA pressure is 3 mmHg. CONCLUSIONS: 1. Normal left ventricular systolic function. The Ejection Fraction(Cheema's) is measured at 66 %. 2. Mildly dilated left atrium. 3. There are no regional wall motion abnormalities. MEASUREMENTS: 2D/MM Value Range DopplerValue LVIDd 2D 3.93 cm [ 3.50 - 5.70 ] AV Peak Vel1.63 m/s LVIDs 2D 2.77 cm [ 3.10 - 4.60 ] AV Peak PG10.63 mmHg IVSd 2D 1.18 cm [ 0.60 - 1.20 ] AV Mean PG6.00 mmHg LVPWd 2D 1.18 cm [ 0.60 - 1.10 ] AV VTI33.60 cm LV Thickness Ratio 1.00 LVOT Peak Vel1.17 m/s LV Mass 2D 159.09 g LVOT Peak PG5.48 mmHg LV Mass Index 2D 91.43 g/m2 LVOT Mean PG3.00 mmHg RWT 0.60 LVOT VTI23.00 cm EDV Mod BP 66.10 ml [ 46.00 - 106.00 ] LVOT Diam1.90 cm LV EDV Index 37.99 ml/m2 ARON VTI1.94 cm2 ESV Mod BP 22.40 ml [ 14.00 - 42.00 ] ARON Vmax2.03 cm2 EF Mod BP 66 % [ 54 - 74 ] LVOT/AV VTI0.68 - Dimensionless index (DVI) LA Dimension 2D 3.90 cm [ 1.90 - 4.00 ] MV E Peak Vel1.30 m/s LA Length 2C 5.49 cm MV A Peak Vel1.50 m/s LA Length 4C 5.53 cm MV E/A0.90 ratio LA Volume BP 77.70 ml MV Decel Ewon628.00 msec LA Volume Index 44.66 ml/m2 [ 16.00 - 34.00 ] Med E` Vel8.75 cm/sec TAPSE 3.47 cm [ 1.71 - 5.00 ] Lat E` Vel7.61 cm/sec RA Volume 32.80 ml Average E/E`15.89 RA Volume Index 18.85 ml/m2 RV S`16.60 cm/sec TR Peak Denzel 2.70 m/s TR Peak PG 29.2 mmHg RA Pressure 3.00 mmHg RVSP 32.20 mmHg PV Peak Denzel 1.07 m/s PV Peak PG 4.58 mmHg PV Mean PG 3.00 mmHg PI ED Denzel 128.00 cm/sec RVOT VTI 16.10 - ATTESTATION: I have reviewed and interpreted the pertinent images and measurements ofthis study. I attest to the conclusions in the final report that is provided above. DISCLAIMER: The study images and the final report will be retained in the patientchart by the [facility] Laboratory for the legally required time period. This chart constitutesthe legal record of any testing performed. Electronically Signed By: Deanna Almendarez MD 02/18/2025 12:32:09 AM CDT [facility] Avril Rodriguez MD CV ECHO PROCEDURES Final Re sult * eGFR (02/17/2025 5:35 AM CDT) eGFR 76 >=60 mL/min/1. 73 m2 Comment: Interpretive Data Reference Interval Normal >/= 90 mL/min/1.73m2 Mildly decreased* 60 - 89 mL/min/1.73m2 Mildly to moderately decreased 45 - 59 mL/min/1.73m2 Moderately to severely decreased 30 - 44 mL/min/1.73m2 Severely decreased 15 - 29 mL/min/1.73m2 Kidney Failure < 15 mL/min/1.73m2 *Relative to young adult level Estimated glomerular filtration rate is determined by the 2020 CKD-EPI equation recommended by the National Kidney Foundation (A Unifying Approach to GFR Estimation: Recommendations of the NKF-ASK Task Force on Reassessing the Inclusion of Race in Diagnosing Kidney Disease, JASN 2020). The CKD-EPI equation should not be used for patients with unstable renal function and has not been validated in children and those over 70. Current interpretive data was last reviewed 2021. Blood 02/17/2025 5:35 AM CDT 02/17/2025 5:59 AM CDT us Darek Potts MD LAB BLOOD ORDERABLES Final Res ult Performing Organization Address [facility] Co de Phone Number [address] [place] [address] * CBC without differential (02/17/2025 5:35 AM CDT) WBC 5.53 3.80 - 9.90 K/cumm Hgb 12.0 11.9 - 15.5 g/dL [facility] Hct 37.0 35.6 - 45.5 % [facility] Plt 294 150 - 400 K/cumm [facility] MPV 9.5 9.1 - 12.3 fL [facility] RBC 3.98 3.90 - 5.20 M/cumm [facility] MCV 93.0 81.3 - 96.4 fL [facility] MCH 30.2 27.1 - 33.3 pg [facility] MCHC 32.4 32.3 - 35.7 g/dL [facility] RDW CV 13.5 11.1 - 14.9 % [facility] RDW SD 46.4 35.7 - 48.1 fL [facility] NRBC abs 0.00 0.00 - 0.01 K/cumm [facility] Blood 02/17/2025 5:35 AM CDT 02/17/2025 6:00 AM CDT us Darek Potts MD LAB BLOOD ORDERABLES Final Res ult Performing Organization Address [facility] Co de Phone Number [address] [place] [address] * Magnesium (02/17/2025 5:35 AM CDT) Pathologist [facility] Magnesium 2.0 1.4 - 2.5 mg/dL Blood 02/17/2025 5:35 AM CDT 02/17/2025 5:59 AM CDT Cristiano Rodriguez MD LAB BLOOD ORDERABLES Final Result Performing Organization Address [facility] de Phone Number [address] [address] * Basic metabolic panel (02/17/2025 5:35 AM CDT) [facility] Sodium 141 135 - 145 mmol/L Potassium, pl 3.6 3.3 - 4.9 mmol/L [facility] Chloride 105 97 - 110 mmol/L [facility] CO2 24 22 - 32 mmol/L [facility] Anion gap 12 2 - 15 mmol/L [facility] BUN 10 6 - 25 mg/dL [facility] Creatinine 0.84 0.60 - 1.10 mg/dL [facility] Glucose 90 70 - 199 mg/dL [facility] Comment: Interpretive Data Fasting glucose >/= 126 mg/dl is diagnostic for diabetes. Fasting is defined as no caloric intake for at least 8 hours. Fasting glucose between 100 mg/dl to 125 mg/dl is diagnostic of prediabetes. In a patient with classic symptoms of hyperglycemia or hyperglycemic crisis, a random glucose >/= 200 mg/dl is diagnostic for diabetes. In the absence of unequivocal hyperglycemia, results should be confirmed by repeat testing. The classification and Diagnosis of Diabetes Diabetes Care 2021; 46: S19-S40. Current interpretive data was last revised 2022. Calcium 8.9 8.5 - 10.3 mg/dL [facility] Blood 02/17/2025 5:35 AM CDT 02/17/2025 5:59 AM CDT us Darek Potts MD LAB BLOOD ORDERABLES Final Res ult Performing Organization Address [facility] Co de Phone Number [address] [employer] [place] [address] * eGFR (02/16/2025 6:56 AM CDT) [facility] eGFR 86 >=60 mL/min/1. 73 m2 Comment: Interpretive Data Reference Interval Normal >/= 90 mL/min/1.73m2 Mildly decreased* 60 - 89 mL/min/1.73m2 Mildly to moderately decreased 45 - 59 mL/min/1.73m2 Moderately to severely decreased 30 - 44 mL/min/1.73m2 Severely decreased 15 - 29 mL/min/1.73m2 Kidney Failure < 15 mL/min/1.73m2 *Relative to young adult level Estimated glomerular filtration rate is determined by the 2020 CKD-EPI equation recommended by the National Kidney Foundation (A Unifying Approach to GFR Estimation: Recommendations of the NKF-ASK Task Force on Reassessing the Inclusion of Race in Diagnosing Kidney Disease, JASN 2020). The CKD-EPI equation should not be used for patients with unstable renal function and has not been validated in children and those over 70. Current interpretive data was last reviewed 2021. Blood 02/16/2025 6:5 6 AM CDT 02/16/2025 7:04 AM CDT us Darek Potts MD LAB BLOOD ORDERABLES Final Res ult [facility] [address] [facility] Department [place] [address] * (ABNORMAL) CBC without differential (02/16/2025 6:56 AM CDT) [facility] WBC 6.07 3.80 - 9.90 K/cumm Hgb 12.2 11.9 - 15.5 g/dL [facility] Hct 37.5 35.6 - 45.5 % [facility] Plt 299 150 - 400 K/cumm [facility] MPV 9.0(L) 9.1 - 12.3 fL [facility] RBC 4.04 3.90 - 5.20 M/cumm [facility] MCV 92.8 81.3 - 96.4 fL [facility] MCH 30.2 27.1 - 33.3 pg [facility] MCHC 32.5 32.3 - 35.7 g/dL [facility] RDW CV 13.6 11.1 - 14.9 % [facility] RDW SD 46.5 35.7 - 48.1 fL [facility] NRBC abs 0.00 0.00 - 0.01 K/cumm [facility] Blood 02/16/2025 6:56 AM CDT 02/16/2025 7:04 AM CDT us Darek Potts MD LAB BLOOD ORDERABLES Final Res ult Performing Organization Address [facility] Co de Phone Number [facility] [address] [facility] Department [place] [address] * Basic metabolic panel (02/16/2025 6:56 AM CDT) Sodium 142 135 - 145 mmol/L Potassium, pl 4.0 3.3 - 4.9 mmol/L [facility] Chloride 107 97 - 110 mmol/L [facility] CO2 25 22 - 32 mmol/L [facility] Anion gap 10 2 - 15 mmol/L [facility] BUN 7 6 - 25 mg/dL [facility] Creatinine 0.76 0.60 - 1.10 mg/dL [facility] Glucose 93 70 - 199 mg/dL [facility] Comment: Interpretive Data Fasting glucose >/= 126 mg/dl is diagnostic for diabetes. Fasting is defined as no caloric intake for at least 8 hours. Fasting glucose between 100 mg/dl to 125 mg/dl is diagnostic of prediabetes. In a patient with classic symptoms of hyperglycemia or hyperglycemic crisis, a random glucose >/= 200 mg/dl is diagnostic for diabetes. In the absence of unequivocal hyperglycemia, results should be confirmed by repeat testing. The classification and Diagnosis of Diabetes Diabetes Care 2021; 46: S19-S40. Current interpretive data was last revised 2022. Calcium 8.8 8.5 - 10.3 mg/dL [facility] Blood 02/16/2025 6:56 AM CDT 02/16/2025 7:04 AM CDT us Darek Potts MD LAB BLOOD ORDERABLES Final Res ult Performing Organization Address City/[facility]/ZIP Co de Phone Number [address] [place] [address] * Troponin T high-sensitivity 6-hour (02/15/2025 8:07 PM CDT) Pathologist [facility] Trop T hs <6 <=14 ng/L Comment: Interpretive Data For further hscTnT resources including the diagnostic algorithm and an aid in interpretation, copy and paste this link: https://nrl.testcatalog.org/show/hsTrop Current Interpretive Data last revised 2020. Trop T hs delta -2 ng/L [facility] Trop T hs interp Insignificant [facility] Blood 02/15/2025 8:07 PM CDT 02/15/2025 8:09 PM CDT Fany OLIVO LAB BLOOD ORDERABLES Final Result Performing Organization Address [facility] de Phone Number [place] [id number] [place] [address] * Influenza A/B, RSV, and COVID-19 PCR Nasopharyngeal (02/15/2025 6:03 PM CDT) [facility] COVID-19 RNA Negative Negative Influenza A RNA Negative Negative [facility] Influenza B RNA Negative Negative [facility] RSV RNA Negative Negative [facility] Comment: Interpretive data: Testing performed by [facility]. This test is performed using the Click[employer]acts[employer] Xpress CoV-2/Flu/RSV plus assay. This is a multiplex, real-time reverse transcriptase PCR assay intended for the qualitative detection of nucleic acid from SARS-CoV-2, influenza A, influenza B, and respiratory syncytial virus. This assay has been cleared by the [place] Food and Drug administration. The performance characteristics have been verified by the [facility]. Results must be considered in the clinical context, and a negative result does not rule out infection. Interpretive Data last revised 2023 Nasopharyngeal 02/15/2025 6: 03 PM CDT 02/15/2025 6:05 PM CDT Narrative [facility] - 02/15/2025 6:55 PM CDT Is the Patient experiencing symptoms consistent with COVID?->Yes Valerie Correia MD LAB MICROBIOLOGY - GEN ERAL ORDERABLES Final Result Performing Organization Address [facility] Co de Phone Number [facility] [address] [place] [address] * Troponin T high-sensitivity 4-hour (02/15/2025 6:02 PM CDT) Trop T hs 6 <=14 ng/L Comment: Interpretive Data For further hscTnT resources including the diagnostic algorithm and an aid in interpretation, copy and paste this link: https://nrl.testcatalog.org/show/hsTrop Current Interpretive Data last revised 2020. Trop T hs delta -2 ng/L [facility] Trop T hs interp Insignificant [facility] Blood 02/15/2025 6:02 PM CDT 02/15/2025 6:05 PM CDT Fany OLIVO LAB BLOOD ORDERABLES Final Result Performing Organization Address [facility] Co de Phone Number [address] [address] * CT Chest PE (CTA) W Contrast (02/15/2025 5:27 PM CDT) Anatomical Region Laterality Modality Body N/A Computed Tomogra phy 02/15/2025 6:51 PM CDT Narrative 02/15/2025 6:55 PM CDT EXAM DESCRIPTION: CT CHEST PE (CTA) W CONTRAST REASON FOR STUDY: Acute cough shortness of breath for 1 day. History of asthma with utilization of inhalers with no relief. No provided history of trauma. No provided surgical history. TECHNIQUE: CT angiogram of the chest performed with intravenous contrast using helical scanning technique with dynamic intravenous contrast injection. Reconstructed coronal and sagittal MPR images reviewed. All images stored on PACS. 3D MIP images rendered on scanning unit and reviewed at time of interpretation. Automated exposure control was used as a dose optimization technique for this examination. CONTRAST TYPE/DOSE: 80 mL Optiray 350 injected via peripheral IV site without reported incident. COMPARISON: Chest radiograph earlier same day. CT chest without contrast 04/18/2024. FINDINGS: VASCULATURE: No CT angiographic evidence of pulmonary emboli. LUNGS: No focal consolidation. Interval enlargement of now 1.9 cm TV spiculated solid pulmonary nodule. PLEURA: No pleural effusion. No pneumothorax. MEDIASTINUM/ELIZABETH: Stable CT appearance, noting redemonstration of hiatal hernia. HEART: Heart size is normal with no pericardial effusion. AXILLA: No lymphadenopathy. CHEST WALL: No subcutaneous emphysema. No chest wall mass. HARDWARE/LINES/TUBES: None. UPPER ABDOMEN: Simple fluid attenuation right hepatic lobe cyst. MUSCULOSKELETAL: No acute abnormality. OTHER: No significant abnormality. IMPRESSION: 1. No CT angiographic evidence of pulmonary emboli. 2. Interval enlargement of now 1.9 cm spiculated solid pulmonary nodule. 3. PET-CT recommended for initial further evaluation. THIS IS AN ELECTRONICALLY VERIFIED FINAL REPORT 02/15/2025 6:55 PM - Electronically signed by Neil JAMISON T: Report ID: [id number] Reading Location: [place] [address] Procedure Note Neil Villa MD - 02/15/2025 EXAM DESCRIPTION: CT CHEST PE (CTA) W CONTRAST REASON FOR STUDY: Acute cough shortness of breath for 1 day. History of asthma with utilization of inhalers with no relief. No provided historyof trauma. No provided surgical history. TECHNIQUE: CT angiogram of the chest performed with intravenous contrastusing helical scanning technique with dynamic intravenous contrast injection. Reconstructed coronal and sagittal MPR images reviewed. All images storedon PACS. 3D MIP images rendered on scanning unit and reviewed at time of interpretation. Automated exposure control was used as a doseoptimization technique for this examination. CONTRAST TYPE/DOSE: 80 mL Optiray 350 injected via peripheral IV site without reported incident. COMPARISON: Chest radiograph earlier same day. CT chest withoutcontrast 04/18/2024. FINDINGS: VASCULATURE: No CT angiographic evidence of pulmonary emboli. LUNGS: No focal consolidation. Interval enlargement of now 1.9 cm TV spiculated solid pulmonary nodule. PLEURA: No pleural effusion. No pneumothorax. MEDIASTINUM/ELIZABETH: Stable CT appearance, noting redemonstration of hiatal hernia. HEART: Heart size is normal with no pericardial effusion. AXILLA: No lymphadenopathy. CHEST WALL: No subcutaneous emphysema. No chest wall mass. HARDWARE/LINES/TUBES: None. UPPER ABDOMEN: Simple fluid attenuation right hepatic lobe cyst. MUSCULOSKELETAL: No acute abnormality. OTHER: No significant abnormality. IMPRESSION: 1. No CT angiographic evidence of pulmonary emboli. 2. Interval enlargement of now 1.9 cm spiculated solid pulmonary nodule. 3. PET-CT recommended for initial further evaluation. THIS IS AN ELECTRONICALLY VERIFIED FINAL REPORT 02/15/2025 6:55 PM - Electronically signed by Neil JAMISON T: Report ID: [id number] Reading Location: [place] [address] Valerie Correia MD IMG CT PROCEDURES Asha l Result * (ABNORMAL) POC Blood Gas and Chemistries, Arterial - (02/15/2025 4:47 PM CDT) pH, art POC 7.44 7.35 - 7.45 pCO2, art POC 35 35 - 45 mmHg [facility] pO2, art POC 66(L) 83 - 108 mmHg [facility] HCO3, art (Calc) POC 24 20 - 30 mmol/L [facility] Base excess, art POC 0 mmol/L [facility] Comment: Interpretive Data No reference range established. Current interpretive data was last revised 2020. O2 Sat, art (Calc) POC 95 94 - 98 % [facility] Oxy Hgb, art POC 90.7 90.0 - 95.0 % [facility] Met Hgb, art POC 0.9 0.0 - 1.9 % [facility] Carboxy Hgb, art POC 3.8(H) 0.0 - 2.9 % [facility] Hemoglobin, art POC 13.9 11.9 - 15.5 g/dL [facility] Sodium, art POC 137 135 - 145 mmol/L [facility] Potassium, art POC 3.7 3.3 - 4.9 mmol/L [facility] Comment: Interpretive Data This method is not able to assess for hemolysis, which may falsely increase potassium concentrations. If further testing is needed to evaluate this result, consider in-laboratory plasma potassium. Current Interpretive Data was last revised on 2022. Glucose, art POC 129 70 - 199 mg/dL [facility] Ionized Calcium, art POC 4.63 4.50 - 5.10 mg/dL [facility] Lactate, art POC 0.9 0.7 - 2.0 mmol/L [facility] Blood 02/15/2025 4:47 PM CDT 02/15/2025 4:47 PM CDT us Valerie Correia MD LAB POCT ORDERABLES - DEVICE Final Result [place] [id number] [facility] Department [place] [address] * XR Chest Pa Lateral 2 Vw (02/15/2025 2:49 PM CDT) Anatomical Region Laterality Modality Body, Chest N/A Computed Radiogr aphy 02/15/2025 3:13 PM CDT Narrative 02/15/2025 3:16 PM CDT EXAM DESCRIPTION: XR CHEST PA LATERAL 2 VIEWS REASON FOR STUDY: SOB To er today with sob, onset early am today TECHNIQUE: 2 radiographic view(s) of the chest. COMPARISON: Correlation with CT chest performed 08/19/2024 FINDINGS: The cardiomediastinal silhouette appears normal. There is no airspace consolidation or pleural effusion. There is a 2.3 cm nodular opacity projecting over the left lung apex. This should correspond with nodular present on prior CT. IMPRESSION: No acute findings. Left apical nodular opacity. This should correspond with nodule present on prior CT. This may be slightly larger and repeat CT could be considered. THIS IS AN ELECTRONICALLY VERIFIED FINAL REPORT 02/15/2025 3:16 PM - Electronically signed by Henry Walton M.D., JR T: Report ID: [id number] Reading Location: [id number] Procedure Note Henry Walton MD - 02/15/2025 EXAM DESCRIPTION: XR CHEST PA LATERAL 2 VIEWS REASON FOR STUDY: SOB To er today with sob, onset early am today TECHNIQUE: 2 radiographic view(s) of the chest. COMPARISON: Correlation with CT chest performed 08/19/2024 FINDINGS: The cardiomediastinal silhouette appears normal. There is no airspace consolidation or pleural effusion. There is a 2.3 cm nodularopacity projecting over the left lung apex. This should correspond with nodular present on prior CT. IMPRESSION: No acute findings. Left apical nodular opacity. This should correspond with nodule presenton prior CT. This may be slightly larger and repeat CT could be considered. THIS IS AN ELECTRONICALLY VERIFIED FINAL REPORT 02/15/2025 3:16 PM - Electronically signed by Henry Walton M.D. JR T: Report ID: [id number] Reading Location: [id number] Fany OLIVO IMG XR PROCEDURES Final Re sult * ECG 12 lead (02/15/2025 2:09 PM CDT) Ventricular Rate EKG/Min 77 BPM [facility] Atrial Rate 77 BPM [facility] KS-Interval (MSEC) 166 ms [facility] QRS-Interval (MSEC) 80 ms [facility] QT-Interval (MSEC) 436 ms [facility] QTc 493 ms [facility] P Batson 66 degrees [facility] R Batson 46 degrees [facility] T Batson 48 degrees [facility] Diagnosis Normal sinus rhythm Prolonged QT Abnormal ECG When compared with ECG of 15-FEB-2016 10:01, Nonspecific T wave abnormality now evident in Anterior leads Confirmed by DEANNA ALMENDAREZ M.D. ([id number]) on 02/16/2025 11:08:11 PM [facility] 02/15/2025 2:09 PM CDT 02/16/2025 11:08 PM CDT Fany OLIVO ECG ORDERABLES Final Resu lt [facility] * Troponin T high-sensitivity series (baseline, 2hr, 4hr, 6hr) (02/15/2025 2:08 PM CDT) Trop T hs 8 <=14 ng/L Comment: Interpretive Data For further hscTnT resources including the diagnostic algorithm and an aid in interpretation, copy and paste this link: https://nrl.testcatalog.org/show/hsTrop Current Interpretive Data last revised 2020. Blood 02/15/2025 2:08 PM CDT 02/15/2025 2:12 PM CDT Fany OLIVO LAB BLOOD ORDERABLES Final Result Performing Organization Address City/[facility]/ZIP Co de Phone Number [facility] [address] Department [place] [address] * eGFR (02/15/2025 2:08 PM CDT) eGFR 87 >=60 mL/min/1. 73 m2 Comment: Interpretive Data Reference Interval Normal >/= 90 mL/min/1.73m2 Mildly decreased* 60 - 89 mL/min/1.73m2 Mildly to moderately decreased 45 - 59 mL/min/1.73m2 Moderately to severely decreased 30 - 44 mL/min/1.73m2 Severely decreased 15 - 29 mL/min/1.73m2 Kidney Failure < 15 mL/min/1.73m2 *Relative to young adult level Estimated glomerular filtration rate is determined by the 2020 CKD-EPI equation recommended by the National Kidney Foundation (A Unifying Approach to GFR Estimation: Recommendations of the NKF-ASK Task Force on Reassessing the Inclusion of Race in Diagnosing Kidney Disease, JASN 202). The CKD-EPI equation should not be used for patients with unstable renal function and has not been validated in children and those over 70. Current interpretive data was last reviewed 2021. Blood 02/15/2025 2:08 PM CDT 02/15/2025 2:12 PM CDT Fany OLIVO LAB BLOOD ORDERABLES Final Result [facility] [address] [facility] Department [place] [address] * (ABNORMAL) Differential, auto (02/15/2025 2:08 PM CDT) Neutrophil abs 3.38 1.50 - 6.50 K/cumm Imm gran abs 0.01 0.00 - 0.10 K/cumm [facility] Lymphocyte abs 1.10 0.80 - 3.30 K/cumm [facility] Monocyte abs 0.85(H) 0.20 - 0.80 K/cumm [facility] Eosinophil abs 0.14 0.00 - 0.50 K/cumm [facility] Basophil abs 0.04 0.00 - 0.10 K/cumm [facility] Neutrophil pct 61.3 % [facility] Comment: Interpretive Data Percent cell count reference ranges are not reported, since discordance with absolute values may lead to misinterpretation of CBC data. Current Interpretive Data was last revised on 2018. Imm gran pct 0.2 % [facility] Comment: Interpretive Data Percent cell count reference ranges are not reported, since discordance with absolute values may lead to misinterpretation of CBC data. Current Interpretive Data was last revised on 2018. Lymphocyte pct 19.9 % [facility] Comment: Interpretive Data Percent cell count reference ranges are not reported, since discordance with absolute values may lead to misinterpretation of CBC data. Current Interpretive Data was last revised on 2018. Monocyte pct 15.4 % [facility] Comment: Interpretive Data Percent cell count reference ranges are not reported, since discordance with absolute values may lead to misinterpretation of CBC data. Current Interpretive Data was last revised on 2018. Eosinophil pct 2.5 % [facility] Comment: Interpretive Data Percent cell count reference ranges are not reported, since discordance with absolute values may lead to misinterpretation of CBC data. Current Interpretive Data was last revised on 2018. Basophil pct 0.7 % [facility] Comment: Interpretive Data Percent cell count reference ranges are not reported, since discordance with absolute values may lead to misinterpretation of CBC data. Current Interpretive Data was last revised on 2018. Blood 02/15/2025 2:08 PM CDT 02/15/2025 2:12 PM CDT Fany OLIVO LAB BLOOD ORDERABLES Final Result [facility] [address] [facility] Department [place] [address] * (ABNORMAL) Pro B-type natriuretic peptide (02/15/2025 2:08 PM CDT) NT-proBNP 541(H) <=300 pg/mL Comment: Interpretive Comments: A. Dyspnea in Acute Care Setting All Ages: < 300 pg/ml, acute heart failure unlikely. < 50 yrs: 300 - 450 pg/ml, further investigation warranted. > 450 pg/ml, acute heart failure likely. 50 - 74 yrs: 300 - 900 pg/ml, further investigation warranted. > 900 pg/ml, acute heart failure likely . > or = 75 yrs: 450 - 1800 pg/ml, further investigation warranted. > 1800 pg/ml, acute heart failure likely. B. Non-acute Setting < 75 yrs < 125 pg/ml, rules out heart failure. > or = 125 pg/ml, further investigation warranted. > or = 75 yrs < 450 pg/ml, rules out heart failure. > or = 450 pg/ml, further investigation warranted. - Knowledge of each individual patient's NT-proBNP range may be more useful than using similar cut-points for every patient. Please note that marked elevations in NT-proBNP levels may be observed in state other than Left Ventricular Congestive Failure, including: acute coronary syndromes, right heart strain/failure (including pulmonary embolism and cor pulmonale), critical illness, renal failure, as well as advanced age. - References: 1. Bernarda BROUSSARD et.al. Eur Heart J. 2006:27:330-337. 2. Heri RW, Britt AM. J. AM [place] Cardiol: Cardiovasc Imag. 2009;2: 216- 225. Interpretive Data Last Revised Date: 2018. Blood 02/15/2025 2:08 PM CDT 02/15/2025 2:12 PM CDT Fany OLIVO LAB BLOOD ORDERABLES Final Result Performing Organization Address City/[facility] Co de Phone Number SALOME [address] [place] [address] * CBC with auto differential (02/15/2025 2:08 PM CDT) WBC 5.52 3.80 - 9.90 K/cumm Hgb 13.4 11.9 - 15.5 g/dL [facility] Hct 41.0 35.6 - 45.5 % [facility] Plt 340 150 - 400 K/cumm [facility] MPV 9.3 9.1 - 12.3 fL [facility] RBC 4.32 3.90 - 5.20 M/cumm [facility] MCV 94.9 81.3 - 96.4 fL [facility] MCH 31.0 27.1 - 33.3 pg [facility] MCHC 32.7 32.3 - 35.7 g/dL [facility] RDW CV 13.6 11.1 - 14.9 % [facility] RDW SD 47.2 35.7 - 48.1 fL [facility] NRBC abs 0.00 0.00 - 0.01 K/cumm [facility] Blood 02/15/2025 2:08 PM CDT 02/15/2025 2:12 PM CDT Fany OLIVO LAB BLOOD ORDERABLES Final Result Performing Organization Address City/[facility]/ZIP Co de Phone Number SALOME [address] [place] [address] * Magnesium (02/15/2025 2:08 PM CDT) Magnesium 2.3 1.4 - 2.5 mg/dL Blood 02/15/2025 2:08 PM CDT 02/15/2025 2:12 PM CDT Valerie Correia MD LAB BLOOD ORDERABLES F inal Result Performing Organization Address City/[facility]/ZIP Co de Phone Number [facility] [address] [facility] Department [place] [address] * Comprehensive metabolic panel (02/15/2025 2:08 PM CDT) Sodium 140 135 - 145 mmol/L Potassium, pl 3.6 3.3 - 4.9 mmol/L [facility] Chloride 105 97 - 110 mmol/L [facility] CO2 23 22 - 32 mmol/L [facility] Anion gap 12 2 - 15 mmol/L [facility] BUN 7 6 - 25 mg/dL [facility] Creatinine 0.75 0.60 - 1.10 mg/dL [facility] Glucose 105 70 - 199 mg/dL [facility] Comment: Interpretive Data Fasting glucose >/= 126 mg/dl is diagnostic for diabetes. Fasting is defined as no caloric intake for at least 8 hours. Fasting glucose between 100 mg/dl to 125 mg/dl is diagnostic of prediabetes. In a patient with classic symptoms of hyperglycemia or hyperglycemic crisis, a random glucose >/= 200 mg/dl is diagnostic for diabetes. In the absence of unequivocal hyperglycemia, results should be confirmed by repeat testing. The classification and Diagnosis of Diabetes Diabetes Care 2021; 46: S19-S40. Current interpretive data was last revised 2022. Calcium 9.0 8.5 - 10.3 mg/dL [facility] Bilirubin, total 0.2 0.1 - 1.2 mg/dL [facility] Protein, pl 6.9 6.5 - 8.5 g/dL [facility] Albumin 4.1 3.5 - 5.0 g/dL [facility] Alk phos 71 40 - 130 Units/L [facility] ALT 11 7 - 45 Units/L [facility] AST 19 10 - 45 Units/L [facility] Blood 02/15/2025 2:08 PM CDT 02/15/2025 2:12 PM CDT Fany OLIVO LAB BLOOD ORDERABLES Final Result Performing Organization Address City/[facility]/ZIP Co de Phone Number SALOME [address] [facility] Department [place] [address] * Mycobacteriology (AFB) culture and acid-fast stain Sputum Sputum (12/14/2024 3:00 PM CDT) Direct Specimen Exam Stain: No Acid-fast bacilli seen Report Final Report: No growth of acid-fast bacilli [facility] Sputum (Sputum) 12/14/2024 3 :00 PM CDT 12/14/2024 5:11 PM CDT Narrative [facility] - 02/14/2025 11:21 AM CDT Specimen received in a sterile container. Testing performed by [facility] ([phone]). us Angela Chapa NP LAB MICROBIOLOGY - GENERA L ORDERABLES Final Result Performing Organization Address [facility] Co de Phone Number [facility] [place] [address] * Glucose, random (Outreach) (12/14/2024 10:57 AM CDT) Glucose 91 70 - 199 mg/dL Comment: Interpretive Data Fasting glucose >/= 126 mg/dl is diagnostic for diabetes. Fasting is defined as no caloric intake for at least 8 hours. Fasting glucose between 100 mg/dl to 125 mg/dl is diagnostic of prediabetes. In a patient with classic symptoms of hyperglycemia or hyperglycemic crisis, a random glucose >/= 200 mg/dl is diagnostic for diabetes. In the absence of unequivocal hyperglycemia, results should be confirmed by repeat testing. The classification and Diagnosis of Diabetes Diabetes Care 2021; 46: S19-S40. Current interpretive data was last revised 2022. Blood 12/14/2024 10:5 7 AM CDT 12/14/2024 1:29 PM CDT us Angela Chapa NP LAB BLOOD ORDERABLES Asha l Result Performing Organization Address [facility]/ZIP Co de Phone Number [facility] [place] [address] * eGFR (12/14/2024 10:57 AM CDT) eGFR 77 >=60 mL/min/1. 73 m2 Comment: Interpretive Data Reference Interval Normal >/= 90 mL/min/1.73m2 Mildly decreased* 60 - 89 mL/min/1.73m2 Mildly to moderately decreased 45 - 59 mL/min/1.73m2 Moderately to severely decreased 30 - 44 mL/min/1.73m2 Severely decreased 15 - 29 mL/min/1.73m2 Kidney Failure < 15 mL/min/1.73m2 *Relative to young adult level Estimated glomerular filtration rate is determined by the 2020 CKD-EPI equation recommended by the National Kidney [employer] (A Unifying Approach to GFR Estimation: Recommendations of the NKF-ASK Task Force on Reassessing the Inclusion of Race in Diagnosing Kidney Disease, JASN 2020). The CKD-EPI equation should not be used for patients with unstable renal function and has not been validated in children and those over 70. Current interpretive data was last reviewed 2021. Blood 12/14/2024 10:5 7 AM CDT 12/14/2024 1:43 PM CDT Angela Chapa DIRECT CARE SUPERVISOR LAB BLOOD ORDERABLES Asha greco Result [facility] [place] [address] * Differential, auto (12/14/2024 10:57 AM CDT) Neutrophil abs 3.8 1.5 - 6.5 K/cumm Imm gran abs 0.0 0.0 - 0.1 K/cumm [facility] Lymphocyte abs 1.9 0.8 - 3.3 K/cumm [facility] Monocyte abs 0.8 0.2 - 0.8 K/cumm [facility] Eosinophil abs 0.3 0.0 - 0.5 K/cumm [facility] Basophil abs 0.1 0.0 - 0.1 K/cumm [facility] Neutrophil pct 55.8 % [facility] Comment: Interpretive Data Percent cell count reference ranges are not reported, since discordance with absolute values may lead to misinterpretation of CBC data. Current Interpretive Data was last revised on 2018. Imm gran pct 0.3 % [facility] Comment: Interpretive Data Percent cell count reference ranges are not reported, since discordance with absolute values may lead to misinterpretation of CBC data. Current Interpretive Data was last revised on 2018. Lymphocyte pct 27.6 % [facility] Comment: Interpretive Data Percent cell count reference ranges are not reported, since discordance with absolute values may lead to misinterpretation of CBC data. Current Interpretive Data was last revised on 2018. Monocyte pct 11.6 % [facility] Comment: Interpretive Data Percent cell count reference ranges are not reported, since discordance with absolute values may lead to misinterpretation of CBC data. Current Interpretive Data was last revised on 2018. Eosinophil pct 4.0 % [facility] Comment: Interpretive Data Percent cell count reference ranges are not reported, since discordance with absolute values may lead to misinterpretation of CBC data. Current Interpretive Data was last revised on 2018. Basophil pct 0.7 % [facility] Comment: Interpretive Data Percent cell count reference ranges are not reported, since discordance with absolute values may lead to misinterpretation of CBC data. Current Interpretive Data was last revised on 2018. Blood 12/14/2024 10:5 7 AM CDT 12/14/2024 1:29 PM CDT us Angela Chapa DIRECT CARE SUPERVISOR LAB BLOOD ORDERABLES Asha l Result SALOME JIMENEZ [facility] [place] [address] * Comprehensive metabolic panel, without glucose (Outreach) (12/14/2024 10:57 AM CDT) Sodium 142 135 - 145 mmol/L Potassium, pl 3.9 3.3 - 4.9 mmol/L [facility] Chloride 104 97 - 110 mmol/L [facility] CO2 28 22 - 32 mmol/L [facility] Anion gap 10 2 - 15 mmol/L [facility] BUN 9 6 - 25 mg/dL [facility] Creatinine 0.83 0.60 - 1.10 mg/dL [facility] Calcium 9.2 8.5 - 10.3 mg/dL [facility] Protein, pl 7.1 6.5 - 8.5 g/dL [facility] Albumin 4.2 3.5 - 5.0 g/dL [facility] Bilirubin, total 0.2 0.1 - 1.2 mg/dL [facility] Alk phos 72 40 - 130 Units/L [facility] AST 20 10 - 45 Units/L [facility] ALT 11 7 - 45 Units/L [facility] Blood 12/14/2024 10:5 7 AM CDT 12/14/2024 1:29 PM CDT us Angela Chapa DIRECT CARE SUPERVISOR LAB BLOOD ORDERABLES Asha l Result [facility] [place] [address] * (ABNORMAL) CBC with auto differential (12/14/2024 10:57 AM CDT) Pathologist [facility] WBC 6.7 3.8 - 9.9 K/cumm Hgb 13.2 11.9 - 15.5 g/dL [facility] Hct 40.7 35.6 - 45.5 % [facility] Plt 423(H) 150 - 400 K/cumm [facility] MPV 10.0 9.1 - 12.3 fL [facility] RBC 4.37 3.90 - 5.20 M/cumm [facility] MCV 93.1 81.3 - 96.4 fL [facility] MCH 30.2 27.1 - 33.3 pg [facility] MCHC 32.4 32.3 - 35.7 g/dL [facility] RDW CV 13.9 11.1 - 14.9 % [facility] RDW SD 47.3 35.7 - 48.1 fL [facility] NRBC abs 0.00 0.00 - 0.01 K/cumm [facility] Blood 12/14/2024 10:5 7 AM CDT 12/14/2024 1:29 PM CDT Angela Chapa NP LAB BLOOD ORDERABLES Asha l Result [facility] [place] [address] * Hepatitis C antibody Blood (02/27/2024 11:38 AM CDT) Hep C Ab Nonreactive Nonreactive Comment: Antibodies to HCV not detected. Does NOT exclude the possibility of recent exposure to HCV. Current interpretive data was last revised on 22 Interpretive Data Nonreactive: Antibodies to HCV not detected. Does NOT exclude the possibility of recent exposure to HCV. Equivocal: Equivocal for HCV antibodies. Supplemental molecular testing will be automatically performed to determine infection status in accordance with current CDC screening recommendations. Reactive: Positive for HCV antibodies. This may represent current or past HCV infection. Supplemental molecular testing will be automatically performed to determine current infection status in accordance with current CDC screening recommendations. Interpretive data was last revised on 2019. Blood 02/27/2024 11:3 8 AM CDT 02/27/2024 11:55 AM CDT us Angela Chapa NP LAB MICROBIOLOGY - GENERA L ORDERABLES Final Result [facility]OME [address] [facility] Department [place] [address] from Last 3 Months or Most Recently Relevant to Health Maintenance Insurance [facility] MEDICARE ADVANTAGE [facility] MEDIC[facility] ADV[employer]AGE Advance Directives For more information, please contact: [phone] * Full Code (Latest Code Status on File) Date Activated Date Inactivated Comments 02/15/2025 11:34 PM 02/18/2025 3:37 PM Care Teams Ramp Jockey Relationship Specialty Start Date End Date Daniel Edward NP [address] [address] PCP - General Nurse Practitioner 10/22/23
--- OUTSIDE RECORDS SUMMARY | 2025-03-15 13:12 | XMS_ITS | Referral Summary ---
Author Organization [facility] Address [address] [place] [id number] Care Team Providers Care Silk Screen Etcher Name Role Phone Daniel Edward NP Primary Care Provider [phone] Encounters Date Type Department Care Team Description 03/02/2025 2:45 PM CDT Lab [facility] [address] [place] [id number] Mycobacterium avium-intracellulare complex (HCC) 02/15/2025 3:44 PM CDT - 02/18/2025 11:32 AM CDT Hospital Encounter [facility] [address] [place] [address] Valerie Correia MD Medavaram, Atul, MD Altwal, Cristiano Mackenzie MD Shortness of breath (Primary Dx); COPD exacerbation (HCC); Hypoxemia Discharge Disposition: Discharge to home or self care 12/14/2024 10:57 AM CDT - 12/14/2024 11:59 PM CDT Hospital Encounter [facility] [address] [place] [address] Mycobacterium avium-intracellulare complex (HCC) Discharge Disposition: Discharge to home or self care 12/14/2024 Telephone [facility] Infectious Diseases [address] [place] [address] [place] [phone] Stefany Posadas RPh RSV vaccine administered 12/14/2024 9:40 AM CDT Office Visit [facility] Infectious Diseases [address] [place] [address] [place] [phone] Angela Chapa NP Mycobacterium avium-intracellulare complex (HCC) (Primary Dx) from Last 3 Months Allergies Active Allergy Reactions Criticality Noted Date [...] TIMES A WEEK 12 tablet 2 025 Active ethambutoL (MYAMBUTOL) 400 mg tablet TAKE [...] disease) Asthma 01/29/2024 Mycobacterium avium-intracellulare complex 01/28 Immunizations Immunization Administration Dates Next Due Influenza, [...] uit: Not Asked; Counseling Given: Not Answered [facility] Utilities Answer Date Recorded In the past 12 months has [employer], [employer], oil, or water [employer] threatened to shut off services in your [...] often do you attend chur ch or religion services? 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[employer] Gender Identity Not on file Sexual Orientation Not on file Last Filed Vital Signs Vital Sign Reading [...] 02/17/2025 7:33 AM CDT Plan of Treatment Not on file Procedures Procedure Name Priority Date/Time Associated Diagnosis [...] 12:06 PM - Electronically signed by Gabo BURNS T: Report ID: [id number] Reading Location: [id number] Procedure Note Gabo Maria MD - 02/18/2025 EXAM DESCRIPTION: XR [...] 12:06 PM - Electronically signed by Gabo BURNS T: Report ID: [id number] Reading Location: [id number] us Cristiano Rodriguez MD IMG XR PROCEDURES [...] MD LAB BLOOD ORDERABLES Final Res ult [place] [address] [facility] Department of Laboratories [place], [place] [id number] * CBC without differential (02/18/2025 7:29 AM CDT) WBC 6.09 3.80 - 9.90 K/cumm Hgb 12.7 11.9 - 15.5 g/dL [facility] Hct 38.3 35.6 - 45.5 % [facility] Plt 311 150 - 400 K/cumm [facility] MPV 9.2 9.1 - 12.3 fL [facility] RBC 4.15 3.90 - 5.20 M/cumm [facility] MCV 92.3 81.3 - 96.4 fL [facility] MCH 30.6 27.1 - 33.3 pg [facility] MCHC 33.2 32.3 - 35.7 g/dL [facility] RDW CV 13.6 11.1 - 14.9 % [facility] RDW SD 46.4 35.7 - 48.1 fL [facility] NRBC abs 0.00 0.00 - 0.01 K/cumm [facility] Blood 02/18/2025 7:29 AM CDT 02/18/2025 7:35 AM CDT us Darek Potts MD LAB BLOOD ORDERABLES Final Res ult [facility] [address] [place] [address] * Basic metabolic panel (02/18/2025 7:29 AM CDT) Pathologist [facility] Sodium 140 135 - 145 mmol/L Potassium, pl 3.5 3.3 - 4.9 mmol/L [facility] Chloride 104 97 - 110 mmol/L [facility] CO2 24 22 - 32 mmol/L [facility] Anion gap 12 2 - 15 mmol/L [facility] BUN 9 6 - 25 mg/dL [facility] Creatinine 0.81 0.60 - 1.10 mg/dL [facility] Glucose 89 70 - 199 mg/dL [facility] Comment: Interpretive Data Fasting glucose >/= 126 [...] 2022. Calcium 9.1 8.5 - 10.3 mg/dL [facility] Blood 02/18/2025 7:29 AM CDT 02/18/2025 7:35 AM CDT us Darek Potts MD LAB BLOOD ORDERABLES Final Res ult [facility] [address] [place] [address] [address] [place] [address] * TRANSTHORACIC ECHO (TTE) COMPLETE W DOPPLER/CF WO CONTRAST (02/17/2025 2:32 PM CDT) EF Mod BP 66 % CONS SCIMAGE Anatomical Region Laterality Modality Ultrasound 02/17/2025 1:58 PM CDT Narrative 02/18/2025 12:32 AM CDT Transthoracic Echocardiographic Report Patient Name: MERA DAVIS F : 1955 (69y 4m) Gender: F Study Date: 02/17/2025 01:58:13 PM Ht(Inch): 64 Wt(Lb): 147.99 BSA: 1.74 Aircraft Seat Upholsterer: Patricia Lucero RDCS Location: [id number] Order Provider: CRISTIANO RODRIGUEZ Heart Rate: 75 BMI: 25.4 BP: 110/96 Ref Provider: CRISTIANO RODRIGUEZ PROCEDURES: Echocardiographic Report: ([id number]) Transthoracic complete echo, 2D, spectral and tissue [...] PM Ht(Inch): 64 Wt(Lb): 147.99 BSA: 1.74 Aircraft Seat Upholsterer: Patricia Lucero RDCS Location: [id number] Order Provider:CRISTIANO RODRIGUEZ Heart Rate: 75 BMI: 25.4 BP: 110/96 Ref Provider: CRISTIANO RODRIGUEZ PROCEDURES: Echocardiographic Report: ([id number]) Transthoracic complete echo, 2D,spectral and tissue Doppler, [...] LA Volume BP 77.70 ml MV Decel Tnmh125.00 msec LA Volume Index 44.66 ml/m2 [ [...] Deanna Almendarez MD 02/18/2025 12:32:09 AM CDT us Cristiano Rodriguez MD CV ECHO PROCEDURES Final Re [...] LAB BLOOD ORDERABLES Final Res ult [facility] [address] [place] [address] * CBC without differential (02/17/2025 5:35 AM CDT) WBC 5.53 3.80 - 9.90 K/cumm Hgb 12.0 11.9 - 15.5 g/dL [facility] Hct 37.0 35.6 - 45.5 % [facility] Plt 294 150 - 400 K/cumm [facility] MPV 9.5 9.1 - 12.3 fL [facility] RBC 3.98 3.90 - 5.20 M/cumm [facility] MCV 93.0 81.3 - 96.4 fL [facility] MCH 30.2 27.1 - 33.3 pg [facility] MCHC 32.4 32.3 - 35.7 g/dL [facility] RDW CV 13.5 11.1 - 14.9 % [facility] RDW SD 46.4 35.7 - 48.1 fL [facility] NRBC abs 0.00 0.00 - 0.01 K/cumm [facility] Blood 02/17/2025 5:35 AM CDT 02/17/2025 6:00 AM CDT us Darek Potts MD LAB BLOOD ORDERABLES Final Res ult Performing Organization Address [facility] Co de Phone Number [address] [employer] [place] [address] * Magnesium (02/17/2025 5:35 AM CDT) Pathologist [facility] Magnesium 2.0 1.4 - 2.5 mg/dL Blood 02/17/2025 5:35 AM CDT 02/17/2025 5:59 AM CDT us Cristiano Rodriguez MD LAB BLOOD ORDERABLES Final Result Performing Organization Address City/[facility] de Phone Number [address] [employer] [employer] [address] * Basic metabolic panel (02/17/2025 5:35 AM CDT) Pathologist [facility] Sodium 141 135 - 145 mmol/L Potassium, pl 3.6 3.3 - 4.9 mmol/L [facility] Chloride 105 97 - 110 mmol/L [facility] CO2 24 22 - 32 mmol/L [facility] Anion gap 12 2 - 15 mmol/L [facility] BUN 10 6 - 25 mg/dL [facility] Creatinine 0.84 0.60 - 1.10 mg/dL [facility] Glucose 90 70 - 199 mg/dL [facility] Comment: Interpretive Data Fasting glucose >/= 126 [...] 2022. Calcium 8.9 8.5 - 10.3 mg/dL [facility] Blood 02/17/2025 5:35 AM CDT 02/17/2025 5:59 AM CDT us Darek Potts MD LAB BLOOD ORDERABLES Final Res ult [facility] [address] Department [place] [address] * eGFR (02/16/2025 6:56 AM CDT) eGFR 86 >=60 mL/min/1. 73 m2 Comment: [...] data was last reviewed 2021. Blood 02/16/2025 6:56 AM CDT 02/16/2025 7:04 AM CDT Darek Potts MD LAB BLOOD ORDERABLES Final Res ult Performing Organization Address [facility] Co de Phone Number [facility] [address] [employer] [place] [address] * (ABNORMAL) CBC without differential (02/16/2025 6:56 AM CDT) WBC 6.07 3.80 - 9.90 K/cumm Hgb 12.2 11.9 - 15.5 g/dL [facility] Hct 37.5 35.6 - 45.5 % [facility] Plt 299 150 - 400 K/cumm [facility] MPV 9.0(L) 9.1 - 12.3 fL [facility] RBC 4.04 3.90 - 5.20 M/cumm [facility] MCV 92.8 81.3 - 96.4 fL [facility] MCH 30.2 27.1 - 33.3 pg [facility] MCHC 32.5 32.3 - 35.7 g/dL [facility] RDW CV 13.6 11.1 - 14.9 % [facility] RDW SD 46.5 35.7 - 48.1 fL [facility] NRBC abs 0.00 0.00 - 0.01 K/cumm [facility] Blood 02/16/2025 6:56 AM CDT 02/16/2025 7:04 AM CDT us Darek Potts MD LAB BLOOD ORDERABLES Final Res ult Performing Organization Address City/[facility]/ZIP Co de Phone Number [facility] [address] [place] [address] * Basic metabolic panel (02/16/2025 6:56 AM CDT) Sodium 142 135 - 145 mmol/L Potassium, pl 4.0 3.3 - 4.9 mmol/L [facility] Chloride 107 97 - 110 mmol/L [facility] CO2 25 22 - 32 mmol/L [facility] Anion gap 10 2 - 15 mmol/L [facility] BUN 7 6 - 25 mg/dL [facility] Creatinine 0.76 0.60 - 1.10 mg/dL [facility] Glucose 93 70 - 199 mg/dL [facility] Comment: Interpretive Data Fasting glucose >/= 126 [...] 2022. Calcium 8.8 8.5 - 10.3 mg/dL [facility] Blood 02/16/2025 6:56 AM CDT 02/16/2025 7:04 AM CDT us Darek Potts MD LAB BLOOD ORDERABLES Final Res ult Performing Organization Address City/[facility] Phone Number [facility] [address] Department [place] [address] * Troponin T high-sensitivity 6-hour (02/15/2025 8:07 PM CDT) Trop T hs <6 <=14 ng/L Comment: Interpretive Data For further hscTnT resources including the diagnostic algorithm and an aid in interpretation, copy and paste this link: https://nrl.testcatalog.org/show/hsTrop Current Interpretive Data last revised 2020. Trop T hs delta -2 ng/L [facility] Trop T hs interp Insignificant [facility] Blood 02/15/2025 8:07 PM CDT 02/15/2025 8:09 PM CDT us Fany OLIVO LAB BLOOD ORDERABLES Final Result Performing Organization Address City/[facility]/ZIP Co de Phone Number [facility] [address] [facility] [place] [address] * Influenza A/B, RSV, and COVID-19 PCR Nasopharyngeal (02/15/2025 6:03 PM CDT) Pathologist [facility] COVID-19 RNA Negative Negative Influenza A RNA Negative Negative [facility] Influenza B RNA Negative Negative [facility] RSV RNA Negative Negative [facility] Comment: Interpretive data: Testing performed by [facility]. This test is performed using the [employer] Xpert Xpress CoV-2/Flu/RSV plus assay. This is a multiplex, real-time reverse transcriptase PCR assay intended for the qualitative detection of nucleic acid from SARS-CoV-2, influenza A, influenza B, and respiratory syncytial virus. This assay has been cleared by the [place] Food and Drug administration. The performance characteristics have been verified by the [facility]. Results must be considered in the clinical context, and a negative result does not rule out infection. Interpretive Data last revised 2023 Nasopharyngeal 02/15/2025 6: 03 PM CDT 02/15/2025 6:05 PM CDT Narrative [facility] - 02/15/2025 6:55 PM CDT Is the Patient experiencing symptoms consistent with COVID?->Yes Valerie Correia MD LAB MICROBIOLOGY - GEN ERAL ORDERABLES Final Result Performing Organization Address [facility] Co de Phone Number [place] [phone] [place] [address] * Troponin T high-sensitivity 4-hour (02/15/2025 6:02 PM CDT) Pathologist [facility] Trop T hs 6 <=14 ng/L Comment: Interpretive Data For further hscTnT resources including the diagnostic algorithm and an aid in interpretation, copy and paste this link: https://nrl.testcatalog.org/show/hsTrop Current Interpretive Data last revised 2020. Trop T hs delta -2 ng/L [facility] Trop T hs interp Insignificant [facility] Blood 02/15/2025 6:02 PM CDT 02/15/2025 6:05 PM CDT Fany OLIVO LAB BLOOD ORDERABLES Final Result [facility] [address] [place] [address] * CT Chest PE (CTA) W Contrast [...] signed by Neil JAMISON T: Report ID: [id number] Reading Location: [id number] Procedure Note Neil Villa MD - 02/15/2025 [...] signed by Neil JAMISON T: Report ID: [id number] Reading Location: [id number] us Valerie Correia MD IMG CT PROCEDURES Asha l Result * (ABNORMAL) POC Blood Gas and Chemistries, Arterial - (02/15/2025 4:47 PM CDT) pH, art POC 7.44 7.35 - 7.45 pCO2, art POC 35 35 - 45 mmHg [facility] pO2, art POC 66(L) 83 - 108 mmHg [facility] HCO3, art (Calc) POC 24 20 - 30 mmol/L [facility] Base excess, art POC 0 mmol/L [facility] Comment: Interpretive Data No reference range established. Current interpretive data was last revised 2020. O2 Sat, art (Calc) POC 95 94 - 98 % [facility] Oxy Hgb, art POC 90.7 90.0 - 95.0 % [facility] Met Hgb, art POC 0.9 0.0 - 1.9 % [facility] Carboxy Hgb, art POC 3.8(H) 0.0 - 2.9 % [facility] Hemoglobin, art POC 13.9 11.9 - 15.5 g/dL [facility] Sodium, art POC 137 135 - 145 mmol/L [facility] Potassium, art POC 3.7 3.3 - 4.9 mmol/L [facility] Comment: Interpretive Data This method is not able to assess for hemolysis, which may falsely increase potassium concentrations. If further testing is needed to evaluate this result, consider in-laboratory plasma potassium. Current Interpretive Data was last revised on 2022. Glucose, art POC 129 70 - 199 mg/dL [facility] Ionized Calcium, art POC 4.63 4.50 - 5.10 mg/dL [facility] Lactate, art POC 0.9 0.7 - 2.0 mmol/L [facility] Blood 02/15/2025 4:47 PM CDT 02/15/2025 4:47 PM CDT Valerie Correia MD LAB POCT ORDERABLES - DEVICE Final Result [facility] [address] Department [place] [address] * XR Chest Pa Lateral 2 Vw [...] Henry Walton M.D., JR T: Report ID: [id number] Reading Location: [place] [address] Procedure Note Henry Walton MD - 02/15/2025 [...] Henry Walton M.D., JR T: Report ID: [id number] Reading Location: [place] [address] Fany OLIVO IMG XR PROCEDURES Final Re sult * ECG 12 lead (02/15/2025 2:09 PM CDT) Ventricular Rate EKG/Min 77 BPM [facility] Atrial Rate 77 BPM [facility] MI-Interval (MSEC) 166 ms [facility] QRS-Interval (MSEC) 80 ms [facility] QT-Interval (MSEC) 436 ms [facility] QTc 493 ms [facility] P [place] 66 degrees [facility] R [place] 46 degrees [facility] T [place] 48 degrees [facility] Diagnosis Normal sinus rhythm Prolonged QT Abnormal ECG When compared with ECG of 15-FEB-2016 10:01, Nonspecific T wave abnormality now evident in Anterior leads Confirmed by DEANNA ALMENDAREZ M.D. ([id number]) on 02/16/2025 11:08:11 PM [facility] 02/15/2025 2:09 PM CDT 02/16/2025 11:08 PM CDT Fany OLIVO ECG ORDERABLES Final Resu lt Performing Organization Address City/[facility] Co de Phone Number [facility] * Troponin T high-sensitivity series (baseline, 2hr, 4hr, 6hr) (02/15/2025 2:08 PM CDT) Pathologist [facility] Trop T hs 8 <=14 ng/L Comment: Interpretive Data For further hscTnT resources including the diagnostic algorithm and an aid in interpretation, copy and paste this link: https://nrl.testcatalog.org/show/hsTrop Current Interpretive Data last revised 2020. Blood 02/15/2025 2:08 PM CDT 02/15/2025 2:12 PM CDT Fany OLIVO LAB BLOOD ORDERABLES Final Result Performing Organization Address City/[facility]/ZIP Co de Phone Number [facility] [address] Department [place] [address] * eGFR (02/15/2025 2:08 PM CDT) [facility] eGFR 87 >=60 mL/min/1. 73 m2 Comment: [...] Fany OLIVO LAB BLOOD ORDERABLES Final Result [facility] [address] Department [place] [address] * (ABNORMAL) Differential, auto (02/15/2025 2:08 PM CDT) [facility] Neutrophil abs 3.38 1.50 - 6.50 K/cumm Imm gran abs 0.01 0.00 - 0.10 K/cumm [facility] Lymphocyte abs 1.10 0.80 - 3.30 K/cumm [facility] Monocyte abs 0.85(H) 0.20 - 0.80 K/cumm [facility] Eosinophil abs 0.14 0.00 - 0.50 K/cumm [facility] Basophil abs 0.04 0.00 - 0.10 K/cumm [facility] Neutrophil pct 61.3 % [facility] Comment: Interpretive Data Percent cell count reference ranges are not reported, since discordance with absolute values may lead to misinterpretation of CBC data. Current Interpretive Data was last revised on 2018. Imm gran pct 0.2 % [facility] Comment: Interpretive Data Percent cell count reference ranges are not reported, since discordance with absolute values may lead to misinterpretation of CBC data. Current Interpretive Data was last revised on 2018. Lymphocyte pct 19.9 % [facility] Comment: Interpretive Data Percent cell count reference ranges are not reported, since discordance with absolute values may lead to misinterpretation of CBC data. Current Interpretive Data was last revised on 2018. Monocyte pct 15.4 % [facility] Comment: Interpretive Data Percent cell count reference ranges are not reported, since discordance with absolute values may lead to misinterpretation of CBC data. Current Interpretive Data was last revised on 2018. Eosinophil pct 2.5 % [facility] Comment: Interpretive Data Percent cell count reference ranges are not reported, since discordance with absolute values may lead to misinterpretation of CBC data. Current Interpretive Data was last revised on 2018. Basophil pct 0.7 % [facility] Comment: Interpretive Data Percent cell count reference ranges are not reported, since discordance with absolute values may lead to misinterpretation of CBC data. Current Interpretive Data was last revised on 2018. Blood 02/15/2025 2:08 PM CDT 02/15/2025 2:12 PM CDT Fany OLIVO LAB BLOOD ORDERABLES Final Result [facility] [address] Department [place] [address] * (ABNORMAL) Pro B-type natriuretic peptide (02/15/2025 [...] Heart J. 2006:27:330-337. 2. Heri RW, Britt LR. J. AM [place] Cardiol: Cardiovasc Imag. 2009;2: 216- 225. Interpretive Data Last Revised Date: 2018. Blood 02/15/2025 2:08 PM CDT 02/15/2025 2:12 PM CDT Fany OLIVO LAB BLOOD ORDERABLES Final Result [facility] [address] Department of Laboratories [place], [place] [id number] * CBC with auto differential (02/15/2025 2:08 PM CDT) [facility] WBC 5.52 3.80 - 9.90 K/cumm Hgb 13.4 11.9 - 15.5 g/dL [facility] Hct 41.0 35.6 - 45.5 % [facility] Plt 340 150 - 400 K/cumm [facility] MPV 9.3 9.1 - 12.3 fL [facility] RBC 4.32 3.90 - 5.20 M/cumm [facility] MCV 94.9 81.3 - 96.4 fL [facility] MCH 31.0 27.1 - 33.3 pg [facility] MCHC 32.7 32.3 - 35.7 g/dL [facility] RDW CV 13.6 11.1 - 14.9 % [facility] RDW SD 47.2 35.7 - 48.1 fL [facility] NRBC abs 0.00 0.00 - 0.01 K/cumm [facility] Blood 02/15/2025 2:08 PM CDT 02/15/2025 2:12 PM CDT Fany OLIVO LAB BLOOD ORDERABLES Final Result Performing Organization Address City/[facility]/ZIP Co de Phone Number [address] [employer] [employer] [address] * Magnesium (02/15/2025 2:08 PM CDT) [facility] Magnesium 2.3 1.4 - 2.5 mg/dL Blood 02/15/2025 2:08 PM CDT 02/15/2025 2:12 PM CDT Valerie Correia MD LAB BLOOD ORDERABLES F inal Result Performing Organization Address [facility] Co de Phone Number [address] [place] [address] * Comprehensive metabolic panel (02/15/2025 2:08 PM CDT) Pathologist [facility] Sodium 140 135 - 145 mmol/L Potassium, pl 3.6 3.3 - 4.9 mmol/L [facility] Chloride 105 97 - 110 mmol/L [facility] CO2 23 22 - 32 mmol/L [facility] Anion gap 12 2 - 15 mmol/L [facility] BUN 7 6 - 25 mg/dL [facility] Creatinine 0.75 0.60 - 1.10 mg/dL [facility] Glucose 105 70 - 199 mg/dL [facility] Comment: Interpretive Data Fasting glucose >/= 126 [...] 2022. Calcium 9.0 8.5 - 10.3 mg/dL [facility] Bilirubin, total 0.2 0.1 - 1.2 mg/dL [facility] Protein, pl 6.9 6.5 - 8.5 g/dL [facility] Albumin 4.1 3.5 - 5.0 g/dL [facility] Alk phos 71 40 - 130 Units/L [facility] ALT 11 7 - 45 Units/L [facility] AST 19 10 - 45 Units/L [facility] Blood 02/15/2025 2:08 PM CDT 02/15/2025 2:12 PM CDT us Fany OLIVO LAB BLOOD ORDERABLES Final Result [facility] [address] Department [place] [address] * Mycobacteriology (AFB) culture and acid-fast stain Sputum Sputum (12/14/2024 3:00 PM CDT) Direct Specimen Exam Stain: No Acid-fast bacilli seen Report Final Report: No growth of acid-fast bacilli [facility] Sputum (Sputum) 12/14/2024 3 :00 PM CDT 12/14/2024 5:11 PM CDT Narrative [facility] - 02/14/2025 11:21 AM CDT Specimen received in a sterile container. Testing performed by [facility] ([phone]). us Angela Chapa NP LAB MICROBIOLOGY - GENERA L ORDERABLES Final Result [facility] JIMENEZ [facility]o [facility] Department [place] [address] * Glucose, random (Outreach) (12/14/2024 10:57 AM [...] Angela Chapa NP LAB BLOOD ORDERABLES Asha greco Result [facility] JIMENEZ [facility] [place] [address] * eGFR (12/14/2024 10:57 AM CDT) eGFR [...] 7 AM CDT 12/14/2024 1:43 PM CDT us Angela Chapa NP LAB BLOOD ORDERABLES Asha fannie Result [facility] [address] [facility] [place] [address] * Differential, auto (12/14/2024 10:57 AM CDT) Pathologist [facility] Neutrophil abs 3.8 1.5 - 6.5 K/cumm Imm gran abs 0.0 0.0 - 0.1 K/cumm [facility] Lymphocyte abs 1.9 0.8 - 3.3 K/cumm [facility] Monocyte abs 0.8 0.2 - 0.8 K/cumm [facility] Eosinophil abs 0.3 0.0 - 0.5 K/cumm [facility] Basophil abs 0.1 0.0 - 0.1 K/cumm [facility] Neutrophil pct 55.8 % [facility] Comment: Interpretive Data Percent cell count reference ranges are not reported, since discordance with absolute values may lead to misinterpretation of CBC data. Current Interpretive Data was last revised on 2018. Imm gran pct 0.3 % [facility] Comment: Interpretive Data Percent cell count reference ranges are not reported, since discordance with absolute values may lead to misinterpretation of CBC data. Current Interpretive Data was last revised on 2018. Lymphocyte pct 27.6 % [facility] Comment: Interpretive Data Percent cell count reference ranges are not reported, since discordance with absolute values may lead to misinterpretation of CBC data. Current Interpretive Data was last revised on 2018. Monocyte pct 11.6 % [facility] Comment: Interpretive Data Percent cell count reference ranges are not reported, since discordance with absolute values may lead to misinterpretation of CBC data. Current Interpretive Data was last revised on 2018. Eosinophil pct 4.0 % [facility] Comment: Interpretive Data Percent cell count reference ranges are not reported, since discordance with absolute values may lead to misinterpretation of CBC data. Current Interpretive Data was last revised on 2018. Basophil pct 0.7 % [facility] Comment: Interpretive Data Percent cell count reference ranges are not reported, since discordance with absolute values may lead to misinterpretation of CBC data. Current Interpretive Data was last revised on 2018. Blood 12/14/2024 10:5 7 AM CDT 12/14/2024 1:29 PM CDT us Angela Chapa [employer] MANAGER LAB BLOOD ORDERABLES Asha greco Result [facility] Department [place] [address] * Comprehensive metabolic panel, without glucose (Outreach) (12/14/2024 10:57 AM CDT) Sodium 142 135 - 145 mmol/L Potassium, pl 3.9 3.3 - 4.9 mmol/L [facility] Chloride 104 97 - 110 mmol/L [facility] CO2 28 22 - 32 mmol/L [facility] Anion gap 10 2 - 15 mmol/L [facility] BUN 9 6 - 25 mg/dL [facility] Creatinine 0.83 0.60 - 1.10 mg/dL [facility] Calcium 9.2 8.5 - 10.3 mg/dL [facility] Protein, pl 7.1 6.5 - 8.5 g/dL [facility] Albumin 4.2 3.5 - 5.0 g/dL [facility] Bilirubin, total 0.2 0.1 - 1.2 mg/dL [facility] Alk phos 72 40 - 130 Units/L [facility] AST 20 10 - 45 Units/L [facility] ALT 11 7 - 45 Units/L [facility] Blood 12/14/2024 10:5 7 AM CDT 12/14/2024 1:29 PM CDT Angela Chapa [employer] SERVICES MANAGER LAB BLOOD ORDERABLES Asha l Result Performing Organization Address City/[facility]/ZIP Co de Phone Number [facility] Department [address] [place] [address] * (ABNORMAL) CBC with auto differential (12/14/2024 10:57 AM CDT) [facility] WBC 6.7 3.8 - 9.9 K/cumm Hgb 13.2 11.9 - 15.5 g/dL [facility] Hct 40.7 35.6 - 45.5 % [facility] Plt 423(H) 150 - 400 K/cumm [facility] MPV 10.0 9.1 - 12.3 fL [facility] RBC 4.37 3.90 - 5.20 M/cumm [facility] MCV 93.1 81.3 - 96.4 fL [facility] MCH 30.2 27.1 - 33.3 pg [facility] MCHC 32.4 32.3 - 35.7 g/dL [facility] RDW CV 13.9 11.1 - 14.9 % [facility] RDW SD 47.3 35.7 - 48.1 fL [facility] NRBC abs 0.00 0.00 - 0.01 K/cumm [facility] Blood 12/14/2024 10:5 7 AM CDT 12/14/2024 1:29 PM CDT Angela Chapa [employer] SERVICES MANAGER LAB BLOOD ORDERABLES Asha l Result [facility] Department [address] [place] [address] * Hepatitis C antibody Blood (02/27/2024 11:38 AM CDT) [facility] Hep C Ab Nonreactive Nonreactive Comment: Antibodies [...] - GENERA L ORDERABLES Final Result [facility] [address] Department [place] [address] from Last 3 Months or Most Recently Relevant to Health Maintenance Insurance [facility] MEDIC[facility] ADV[facility]AGE Advance Directives For more information, please contact: [phone] * Full Code (Latest Code Status on File) Date Activated Date Inactivated Comments 02/15/2025 11:34 PM 02/18/2025 3:37 PM Care Teams Silk Screen Etcher Relationship Specialty Start Date End Date Daniel Edward NP [address] [facility] [address] [place] [address] PCP - General Nurse Practitioner 10/22/23
== END 2025-03-15 12:16 | disposition home or self-care (01) ==
PROVIDERS: PCP Family Medicine; Visit Provider Nurse Practitioner Family
DX: R91.8 Other nonspecific abnormal finding of lung field (principal)
CPT/HCPCS: 78815; A9552